=== PATIENT | male | born 1985 | race Caucasian/White ===

== ENCOUNTER 2019-07-02 20:58 | Emergency (ER) | payer OTHER, SELFPAY ==
--- NOTE | ~2019-07-02 | CT_ITS ---
EXAMINATION: CTA chest PE protocol DATE: 07/02/2019 23:14 CDT INDICATION: Cough and chest tightness TECHNIQUE: Computed tomographic angiography (CTA) of the chest was performed with 100 mL Omnipaque-35 0 intravenous contrast. The dose-length product was 961.16 mGy-cm. Maximum intensity projection 3D-re constructions of the aorta and other arteries were constructed by the technologist on a separate work station. Automated exposure control and iterative reconstruction technique were employed. COMPARISON: Chest x-ray dated 07/02/2019 FINDINGS: The study is technically limited for evaluation of peripheral pulmonary embolism due to lucy ing of contrast bolus. No central pulmonary embolism is identified. There is soft tissue in the anter ior mediastinum, likely residual thymic tissue. There is mediastinal lymphadenopathy. Right hilar lym ph node measures 1.4 cm. No significant pleural or pericardial effusion. Heart size is normal. Visual ized aspects of the upper abdomen are unremarkable. There are cholecystectomy clips. There are patchy reticulonodular densities with areas of tree-in-bud configuration primarily affectin g the right upper lobe. There is a 9 mm left upper lobe nodule with suggestion of internal macroscopi c fat, most likely benign hamartoma. IMPRESSION: 1. Patchy right upper lobe reticulonodular densities, most likely infectious. 2: Probable benign 9 mm left upper lobe nodule. Follow-up CT in 6 months recommended. 3: No central pulmonary embolism. Technically limited for evaluation of peripheral pulmonary embolism . 4: Right hilar lymphadenopathy, likely reactive. Reviewed, dictated and finalized at location A. IMPRESSION: 1. Patchy right upper lobe reticulonodular densities, most likely infectious. 2: Probable benign 9 mm left upper lobe nodule. Follow-up CT in 6 months recomm ended. 3: No central pulmonary embolism. Technically limited for evaluation of periphe ral pulmonary embolism. 4: Right hilar lymphadenopathy, likely reactive.
--- NOTE | ~2019-07-02 | XR_ITS ---
XR chest 2V 07/02/2019 21:29 Indication: Cough and shortness of breath. Fever. Procedure: 2 view chest Comparison: 07/03/2018 Findings: There is right basilar airspace disease. Shallow inspiration with crowding of the pulmonary vasculature. There is a nodular density left mid chest. Recommend correlation with CT on a nonemerge nt basis. No pleural effusion or pneumothorax. Heart size normal. Impression: 1: Right basilar infiltrate may represent atelectasis or developing pneumonia. 2: Nodular density left mid chest. Follow-up CT evaluation recommended on nonemergent basis. Reviewed, dictated and finalized at location A. Impression: 1: Right basilar infiltrate may represent atelectasis or developing pneumonia. 2: Nodular density left mid chest. Follow-up CT evaluation recommended on none mergent basis.
[2019-07-02 21:00] VITALS: BP 150/74; PULSE 78; RESP 17; TEMP 36.3; O2SAT 97
[2019-07-02 21:06] VITALS: BP 176/91; PULSE 83; RESP 16; TEMP 36.1; O2SAT 99
--- NOTE | 2019-07-02 21:06 | ED.SOB ---
HPI - SOB/Dyspnea General Chief Complaint: Shortness of Breath/Dyspnea Stated Complaint: sob Time Seen by Provider: 07/02/19 21:00 Source: patient Mode of arrival: ambulatory Limitations: no limitations History of Present Illness HPI Narrative: Patient is a 33 year old male who presents to the emergency department with complaints of shortness of breath that started a week ago. Patient called his primary care physician and he was diagnosed with bronchitis and prescribes an inhaler and an antibiotic maybe cipro. He reports a fever of 99F and a dry cough that is occasionally productive with thick phlegm. He also notes a poor appetite. Patient notes that he had his gallbladder removed so when he eats fatty foods he gets diarrhea. Patient also notes a 7/10 headache that started a few hours ago. He notes that he only had clear/yellow nasal drainage when it was raining due to his allergies. He denies having any urinary problems. He denies any ankle swelling. Patient denies a history of asthma, COPD, or CHF. He has a history of a cholecystectomy, appendectomy, kidney stones, and x2 spinal taps. Patient works at a [employer] in [employer] but he has not been to work in the last week. He is recently . MD elicited complaint: shortness of breath Onset (ago): week(s) (1) Timing: progressively worsening Relieving factors: nothing Associated symptoms: fever (99F) and cough Related Data Home Medications Medication Instructions Recorded Confirmed hydrocodone-acetaminophen 1 tablet PO Q4-5H PRN 04/23/19 04/23/19 sulfamethoxazole-trimethoprim 1 tablet PO BID 04/23/19 04/23/19 Allergies Allergy/AdvReac Type Severity Reaction Status Date / Time Boyd And Derivatives Allergy Severe ORAL Verified 07/02/19 21:17 BLISTERS onion Allergy Mild Diarrhea Verified 07/02/19 21:17 diphenhydramine AdvReac Intermediate AGGRESSION Verified 07/02/19 21:17 Review of Systems Review of Systems: All systems reviewed & are unremarkable except as noted in HPI and below Constitutional: Constitutional: Reports no additional constitutional complaints, Reports fever(s) (99F) and Reports poor appetite Cardiovascular: Cardiovascular: Denies chest pain, Denies radiating jaw, neck or arm pain and Denies slow heart rate Respiratory: Respiratory: Reports chest congestion, Reports cough, Reports dyspnea and Denies wheezing Gastrointestinal: Gastrointestinal: Reports diarrhea Genitourinary: Genitourinary: Denies other (urinary problems) Neurologic: Reports headache(s) PMFSH Past Medical History Medical History Back injury Chronic neck pain Chronic pain of left lower extremity GERD (gastroesophageal reflux disease) Heat stroke Inguinal hernia Bilateral Kidney stone Migraines Sleep apnea with use of continuous positive airway pressure (CPAP) Surgical History Surgical History H/O inguinal hernia repair Bilateral History of appendectomy History of cystoscopy History of extraction of renal calculus S/P ureteral stent placement Social History Social History Smoking status: Former smoker Alcohol intake: current Gender identity (if verbalized by the patient): Male Exam Const: General: cooperative Nutritional Appearance: obese HENMT: Head: normal to inspection Resp: Effort & Inspection: normal respiratory effort Auscultation: clear to auscultation bilaterally and no wheezes Cardio: Rate: regular rate Rhythm: regular rhythm Heart sounds: no murmurs GI: Inspection: normal to inspection GI Palp: No abdominal tenderness Skin: General skin exam: normal color Neuro: General: patient oriented x3 (alert) Extrem: General: full ROM and no edema Psych: Mental Status: mental status grossly normal Course Consultations Consultation #1: Discussed case with patients primary care phys
--- NOTE | 2019-07-02 21:12 | ECG_ITS ---
Measurements Intervals [place] Rate: 76 P: 39 W[place]: 141 QRS: 42 QRSD: 78 T: 36 QT: 367 QTc: 413 Interpretive Statements SINUS RHYTHM BASELINE ARTIFACT- II, III, V6 NORMAL ECG Electronically Signed On 07-03-2019 6:57:22 CDT by Eric Barbosa D.O.
[2019-07-02 21:14] VITALS: PULSE 79; O2SAT 99
[2019-07-02] MEDS: ACETAMINOPHEN 500 MG TABLET 1000 MG PO (21:33)
[2019-07-02 21:39] LABS: Basophils Percent Auto 0.3 % (0.2-1.2); Eosinophils Absolute Auto 0.3 K/mm3 (0-0.3); Eosinophils Percent Auto 4.1 % (0-4.4); Hemoglobin 12.9 g/dL (14.0-18.0); Immature Granulocyte Absolute 0.05 K/mm3 (0.00-0.031); Immature Granulocyte Percent A 0.6 % (0-0.5); Lymphocytes Absolute Auto 1.75 K/mm3 (0.9-3.2); Lymphocytes Percent Auto 22.6 % (18.3-44.2); Mean Corpuscular HGB Conc 33.9 g/dl (32-36); Mean Corpuscular Hemoglobin 27.3 pg (26-34); Mean Corpuscular Volume 80.5 fl (80-100); Mean Platelet Volume 11.9 fl (7.4-10.4); Monocytes Absolute Auto 0.7 K/mm3 (0.1-0.6); Neutrophils Absolute Auto 4.9 K/mm3 (1.3-6.7); Neutrophils Percent Auto 63.4 % (45.5-73.1); Platelet Count Result 185 k/mm3 (150-375); Red Blood Count 4.72 M/mm3 (4.6-6.20); Red Cell Distribution Width 13.2 % (11.5-14.5); White Blood Count 7.7 K/mm3 (4.5-10.0)
[2019-07-02 21:57] LABS: Alanine Aminotransferase 26 U/L (4-50); Albumin Level 3.6 g/dL (3.5-5.1); Alkaline Phosphatase 66 U/L (38-126); Aspartate Amino Transferase 31 U/L (17-59); Bilirubin,Total 0.7 mg/dL (0.2-1.3); Blood Urea Nitrogen 13 mg/dL (9-20); Calcium 8.2 mg/dL (8.4-10.2); Carbon Dioxide 26 mmol/L (22-30); Chloride 107 mmol/L (98-107); Estimated CRCL calculation 164 ml/min; Estimated Glomerular Filt Rate > 60; Glucose 101 mg/dL (75-110); Potassium 3.9 mmol/L (3.4-5.0); Sodium 139 mmol/L (137-145)
[2019-07-02 22:06] LABS: NT Pro B Type Natriuretic Pept 487 PG/ML (5-100)
[2019-07-02 22:08] LABS: Troponin I < 0.012 ng/mL (0.000-0.034)
[2019-07-02] MEDS: CALCIUM GLUCONATE 1,000 MG/10 ML VIAL 1000 MG IV PUSH (22:20)
[2019-07-02 22:21] VITALS: BP 164/95; PULSE 79; RESP 22; O2SAT 100
[2019-07-02] MEDS: FUROSEMIDE INJ 40 MG/4 ML VIAL IV PUSH (22:21)
[2019-07-02 23:21] VITALS: BP 169/103; PULSE 89; RESP 18; O2SAT 99
[2019-07-02 23:47] VITALS: BP 165/84; PULSE 75; RESP 18; TEMP 36.9; O2SAT 97
== END 2019-07-02 23:50 | disposition home or self-care (01) ==
PROVIDERS: Emergency Provider Emergency Medicine; PCP Physician Assistant
DX: I50.9 Heart failure, unspecified (principal); J18.9 Pneumonia, unspecified organism; R03.0 Elevated blood-pressure reading, without diagnosis of hypertension; E83.51 Hypocalcemia; K21.9 Gastro-esophageal reflux disease without esophagitis; G47.30 Sleep apnea, unspecified; Z87.442 Personal history of urinary calculi; Z87.891 Personal history of nicotine dependence
CPT/HCPCS: 36415; 71046; 71275; 80053; 83880; 84484; 85025; 93005; 96374; 96375; 99284; A9270; J0610; J1940; Q9967

== ENCOUNTER 2019-10-05 13:57 | Emergency (ER) | payer OTHER, SELFPAY ==
--- NOTE | ~2019-10-05 | CT_ITS ---
EXAMINATION: CT abdomen pelvis w con DATE: 10/05/2019 15:42 INDICATION: Right upper quadrant abdominal pain. Nausea. Diarrhea. TECHNIQUE: Computed tomography (CT) of the chest was performed with 100 cc Omnipaque 350 intravenous contrast. The dose-length product was 1746.03 mGy-cm. Automated exposure control and iterative recons truction technique were employed. COMPARISON: CT dated 04/12/2019 FINDINGS: Lung bases unremarkable. No significant pleural or pericardial effusion. Heart size normal. No significant vascular abnormality. There are surgical changes of appendectomy. Status post cholecystectomy. The liver, spleen, pancreas, adrenal glands and kidneys are unremarkable . No free air or free fluid. There is a healed left 11th rib fracture posteriorly. No acute osseous a bnormality. Nonobstructive bowel gas pattern. No hydronephrosis. IMPRESSION: 1. No acute abdominal abnormality. No findings to account for patient's symptoms. Reviewed, dictated and finalized at location A. IMPRESSION: 1. No acute abdominal abnormality. No findings to account for patient's symptom s.
[2019-10-05 14:14] VITALS: BP 153/94; PULSE 80; RESP 18; TEMP 37.1; O2SAT 99
[2019-10-05] MEDS: MORPHINE SULFATE 4 MG/ML INJ IV PUSH (14:33)
[2019-10-05] MEDS: ONDANSETRON INJ 4 MG/2 ML VIAL IV PUSH (14:34)
--- NOTE | 2019-10-05 14:37 | PC.NURSE ---
Pt states he is unable to give urine sample at this time. I informed pt that if not able to get urine we will have to straight cath
[2019-10-05 14:40] LABS: Basophils Percent Auto 0.3 % (0.2-1.2); Eosinophils Absolute Auto 0.2 K/mm3 (0-0.3); Eosinophils Percent Auto 2.5 % (0-4.4); Hematocrit 45.1 % (42.0-52.0); Hemoglobin 15.8 g/dL (14.0-18.0); Immature Granulocyte Absolute 0.04 K/mm3 (0.00-0.031); Immature Granulocyte Percent A 0.4 % (0-0.5); Lymphocytes Absolute Auto 1.75 K/mm3 (0.9-3.2); Lymphocytes Percent Auto 18.8 % (18.3-44.2); Mean Corpuscular Hemoglobin 27.2 pg (26-34); Mean Corpuscular Volume 77.6 fl (80-100); Mean Platelet Volume 11.6 fl (7.4-10.4); Monocytes Absolute Auto 0.9 K/mm3 (0.1-0.6); Monocytes Percent Auto 9.2 % (2.6-8.5); Neutrophils Absolute Auto 6.4 K/mm3 (1.3-6.7); Neutrophils Percent Auto 68.8 % (45.5-73.1); Platelet Count Result 218 k/mm3 (150-375); Red Blood Count 5.81 M/mm3 (4.6-6.20); Red Cell Distribution Width 13.5 % (11.5-14.5); White Blood Count 9.3 K/mm3 (4.5-10.0)
--- NOTE | 2019-10-05 14:50 | ED.ABDPAIN ---
HPI - Abdominal Pain General Chief Complaint: Abdominal Pain Stated Complaint: RUQ ABD PAIN Time Seen by Provider: 10/05/19 14:01 History of Present Illness HPI narrative: Patient is a 33-year-old male who presents the ER with abdominal pain. Ongoing over the last week associated with diarrhea anytime he eats. Pain is in the right upper quadrant as well as the left upper quadrant. No blood in his stool. No alleviating factors. Has had persistent nausea since he has had his gallbladder out. Referred here by PCP for persistent discomfort. Related Data Home Medications Medication Instructions Recorded Confirmed hydrocodone-acetaminophen 1 tablet PO Q4-5H PRN 04/23/19 04/23/19 sulfamethoxazole-trimethoprim 1 tablet PO BID 04/23/19 04/23/19 Allergies Allergy/AdvReac Type Severity Reaction Status Date / Time Calvert And Derivatives Allergy Severe ORAL Verified 07/02/19 21:17 BLISTERS onion Allergy Mild Diarrhea Verified 07/02/19 21:17 diphenhydramine AdvReac Intermediate AGGRESSION Verified 07/02/19 21:17 Review of Systems Review of Systems: All systems reviewed & are unremarkable except as noted in HPI and below Constitutional: Constitutional: Denies chills and Denies fever(s) Comments: Sweats ENT: Denies nasal congestion and Denies sore throat Cardiovascular: Cardiovascular: Denies chest pain, Denies rapid heart rate and Denies radiating jaw, neck or arm pain Gastrointestinal: Gastrointestinal: Reports abdominal pain, Denies heartburn, Reports diarrhea, Reports nausea and Denies vomiting Genitourinary: Genitourinary: Denies dysuria and Denies urinary frequency PMF Social History Social History Smoking status: Former smoker Alcohol intake: current Gender identity (if verbalized by the patient): Male Exam Narrative: Exam Narrative: GENERAL: Well-appearing, morbidly obese, and in no acute distress. HEAD: Normocephalic, atraumatic. CHEST: Clear to auscultation. No respiratory distress. HEART: Regular rate and rhythm. Normal peripheral pulses. ABDOMEN: Soft, tender palpation bilateral upper quadrants right greater than left with guarding, nondistended. EXTREMITIES: Normal range of motion. No edema. SKIN: Warm, dry, no rash. NEURO: Alert and oriented x3. PSYCH: Normal mood and affect. Course Course Emergency Course: Normal work-up. Discharge home. Vital Signs Vital signs: Vital Signs Temperature 98.8 F 10/05/19 14:14 Pulse Rate 80 10/05/19 14:14 Respiratory Rate 18 10/05/19 14:14 Blood Pressure 153/94 H 10/05/19 14:14 Pulse Oximetry 99 10/05/19 14:14 Temperature 98.8 F 10/05/19 14:14 Pulse Rate 74 10/05/19 17:13 Respiratory Rate 15 10/05/19 17:13 Blood Pressure 174/65 H 10/05/19 17:13 Pulse Oximetry 98 10/05/19 17:13 MDM - Abdominal Pain Lab Data Result diagrams: 10/05/19 14:35 10/05/19 14:35 Labs: Lab Results 10/05/19 10/05/19 Range/Units 14:35 14:35 WBC 9.3 (4.5-10.0) K/mm3 RBC 5.81 (4.6-6.20) M/mm3 Hgb 15.8 (14.0-18.0) g/dL Hct 45.1 (42.0-52.0) % MCV 77.6 L (80-100) fl MCH 27.2 (26-34) pg MCHC 35.0 (32-36) g/dl RDW 13.5 (11.5-14.5) % Plt Count 218 (150-375) k/mm3 MPV 11.6 H (7.4-10.4) fl Immature Gran % (Auto) 0.4 (0-0.5) % Neut % (Auto) 68.8 (45.5-73.1) % Lymph % (Auto) 18.8 (18.3-44.2) % Benton % (Auto) 9.2 H (2.6-8.5) % Eos % (Auto) 2.5 (0-4.4) % Baso % (Auto) 0.3 (0.2-1.2) % Lymph # (Auto) 1.75 (0.9-3.2) K/mm3 Benton # (Auto) 0.9 H (0.1-0.6) K/mm3 Eos # (Auto) 0.2 (0-0.3) K/mm3 Baso # (Auto) 0.0 (0.0-0.1) K/mm3 Abs Immat Gran (auto) 0.04 H (0.00-0.031) K/mm3 Absolute Neuts (auto) 6.4 (1.3-6.7) K/mm3 Absolute Nucleated RBC 0.0 (0.0-0.012) K/mm3 Nucleated RBC % 0.0 (0.0-0.2) % Sodium 139 (137-145) mmol/L Potassium 4.0 (3.4-5.0) mmol/L Chloride 106 (98-
[2019-10-05 14:52] LABS: Alanine Aminotransferase 36 U/L (4-50); Albumin Level 3.9 g/dL (3.5-5.1); Alkaline Phosphatase 90 U/L (38-126); Aspartate Amino Transferase 28 U/L (17-59); Bilirubin,Total 0.6 mg/dL (0.2-1.3); Blood Urea Nitrogen 8 mg/dL (9-20); Calcium 8.5 mg/dL (8.4-10.2); Carbon Dioxide 25 mmol/L (22-30); Chloride 106 mmol/L (98-107); Estimated CRCL calculation 195 ml/min; Estimated Glomerular Filt Rate > 60; Glucose 101 mg/dL (75-110); Lipase 51 U/L (23-300); Sodium 139 mmol/L (137-145)
[2019-10-05 17:13] VITALS: BP 174/65; PULSE 74; RESP 15; O2SAT 98
== END 2019-10-05 17:30 | disposition home or self-care (01) ==
PROVIDERS: Emergency Provider Emergency Medicine; PCP Physician Assistant
DX: R14.0 Abdominal distension (gaseous) (principal); R10.11 Right upper quadrant pain; R10.12 Left upper quadrant pain
CPT/HCPCS: 36415; 74177; 80053; 83690; 85025; 96374; 96375; 99284; J2270; J2405; Q9967

== ENCOUNTER 2019-12-07 15:57 | Emergency (ER) | payer OTHER, SELFPAY ==
--- NOTE | ~2019-12-07 | CT_ITS ---
EXAMINATION: CT abdomen pelvis wo con DATE: 12/07/2019 17:35 INDICATION: Flank pain. Urinary tract infection. History of stone. TECHNIQUE: Computed tomography (CT) of the abdomen and pelvis was performed without intravenous contr ast. Automated exposure control and iterative reconstruction technique were employed. Exam dose: 157 4.68 mGy-cm total exam DLP. COMPARISON: 10/05/[address] abdomen pelvis FINDINGS: The lung bases are clear of infiltrate or consolidation. Normal heart size. No pericardial or pleural effusion. Status post cholecystectomy. The liver, spleen, pancreas, and adrenal glands and kidneys appear unrem arkable on this limited noncontrast examination. No bile duct or pancreatic duct dilatation. No urinary tract calculus or hydroureteronephrosis. Normal caliber of the abdominal aorta. No intraperitoneal or retroperitoneal or pelvic mass lesion or adenopathy or ascites. Probable appendectomy. No bowel obstruction, bowel wall thickening, pneumatosis or intraperitoneal free air is detected. Pro bable appendectomy. Old posterior left 11th rib fracture deformity. IMPRESSION: Status post cholecystectomy. Probable appendectomy. No urinary tract calculus or hydroureteronephrosis Reviewed, dictated and finalized at [facility]. Reviewed, dictated and finalized at location A.
--- NOTE | ~2019-12-07 | XR_ITS ---
EXAMINATION: XR abdomen/kub 1V EXAM DATE: 12/07/2019 17:43 INDICATION: History of kidney stones, left-sided pain. TECHNIQUE: Frontal projection of the upper abdomen, frontal projection lower abdomen/pelvis for inter pretation. There is no prior study for comparison. FINDINGS: There is expected amount of colonic stool and gas. No small bowel dilation, nonobstructiv e bowel gas pattern. Some stool and bowel gas overlying the renal contours. There are no suspicious c alcifications identified. There is no organomegaly suspected. The bones are unremarkable. There are cholecystectomy clips. Previously seen right-sided ureteral stent has been removed. IMPRESSION: Unremarkable abdomen x-ray exam. Reviewed, dictated and finalized at location A.
[2019-12-07 16:03] VITALS: BP 156/106; PULSE 57; RESP 16; TEMP 35.7; O2SAT 96
[2019-12-07 16:16] LABS: Basophils Percent Auto 0.2 % (0.2-1.2); Eosinophils Absolute Auto 0.2 K/mm3 (0-0.3); Eosinophils Percent Auto 1.9 % (0-4.4); Hematocrit 45.8 % (42.0-52.0); Hemoglobin 15.9 g/dL (14.0-18.0); Immature Granulocyte Absolute 0.04 K/mm3 (0.00-0.031); Immature Granulocyte Percent A 0.4 % (0-0.5); Lymphocytes Absolute Auto 2.07 K/mm3 (0.9-3.2); Lymphocytes Percent Auto 19.2 % (18.3-44.2); Mean Corpuscular HGB Conc 34.7 g/dl (32-36); Mean Corpuscular Hemoglobin 27.6 pg (26-34); Mean Corpuscular Volume 79.4 fl (80-100); Mean Platelet Volume 12.4 fl (7.4-10.4); Monocytes Percent Auto 9.6 % (2.6-8.5); Neutrophils Absolute Auto 7.4 K/mm3 (1.3-6.7); Neutrophils Percent Auto 68.7 % (45.5-73.1); Platelet Count Result 175 k/mm3 (150-375); Red Blood Count 5.77 M/mm3 (4.6-6.20); Red Cell Distribution Width 13.5 % (11.5-14.5); White Blood Count 10.8 K/mm3 (4.5-10.0)
[2019-12-07 16:26] LABS: Anion Gap 7 mmol/L (8-16); Blood Urea Nitrogen 11 mg/dL (9-20); Calcium 8.4 mg/dL (8.4-10.2); Carbon Dioxide 24 mmol/L (22-30); Chloride 107 mmol/L (98-107); Estimated CRCL calculation 155 ml/min; Estimated Glomerular Filt Rate > 60; Glucose 116 mg/dL (75-110); Potassium 4.1 mmol/L (3.4-5.0); Sodium 138 mmol/L (137-145)
[2019-12-07 16:26] LABS: Add Urine Microscopic? YES; Appearance Urine Clear (Clear); Bacteria Urine Trace /hpf; Bilirubin Urine Negative (Negative); Blood Urine Negative (Negative); Color Urine Amber (Yellow); Glucose Urine UA Negative (Negative); Ketones Urine Negative (Negative); Leukocyte Esterase Ur Negative LEU/UL (Negative); Mucus Urine Moderate /lpf; Nitrate Urine Positive (Negative); Protein Urine 1+ mg/dL (Negative); RBC Urine 0-2 /hpf (0-2); Specific Grav Ur 1.029 (1.001-1.035); Squamous Epithelial Cell Urine Many /hpf (Few); WBC Urine 0-3 /hpf
--- NOTE | 2019-12-07 16:43 | ED.BACK ---
HPI - Back Pain/Injury General Chief Complaint: Back Pain/Injury Stated Complaint: Another kidney stone Time Seen by Provider: 12/07/19 16:43 Source: patient Mode of arrival: ambulatory Limitations: no limitations History of Present Illness HPI Narrative: Patient is a 34-year-old male with history of nephrolithiasis who presents for evaluation of left flank pain. Patient states he awakened this morning with a dull, aching pain in his left upper back. States it felt similar to a pulled muscle but patient has also had kidney stones for like this in the past. Patient states throughout the course of the day the pain is worsened. He denies fever, chills or vomiting. He reports mild nausea. He denies dysuria or hematuria that he has noticed. Patient states that pain has become more severe, more consistent with pain consistent with kidney stone, thus patient presented for evaluation here. Related Data Home Medications Medication Instructions Recorded Confirmed hydrocodone-acetaminophen 1 tablet PO Q4-5H PRN 04/23/19 04/23/19 sulfamethoxazole-trimethoprim 1 tablet PO BID 04/23/19 04/23/19 meloxicam 12/07/19 Allergies Allergy/AdvReac Type Severity Reaction Status Date / Time Sargent And Derivatives Allergy Severe ORAL Verified 12/07/19 17:17 BLISTERS onion Allergy Mild Diarrhea Verified 12/07/19 17:17 diphenhydramine AdvReac Intermediate AGGRESSION Verified 12/07/19 17:17 Review of Systems Review of Systems: Narrative: CONSTITUTIONAL: Denies fever, chills, or sweats. ENT: Denies rhinorrhea, congestion, sore throat, or otalgia. CARDIOVASCULAR: Denies chest pain RESPIRATORY: Denies cough or dyspnea. GASTROINTESTINAL: Denies abdominal pain, reports left flank pain and nausea GENITOURINARY: Denies dysuria or hematuria. SKIN: Denies rash or itching. MUSCULOSKELETAL: Denies joint pain, or myalgia. NEUROLOGIC: Denies headache, numbness, or weakness. [facility] Past Medical History Medical History Back injury Chronic neck pain Chronic pain of left lower extremity GERD (gastroesophageal reflux disease) Heat stroke Inguinal hernia Bilateral Kidney stone Migraines Sleep apnea with use of continuous positive airway pressure (CPAP) Surgical History Surgical History H/O inguinal hernia repair Bilateral History of appendectomy History of cystoscopy History of extraction of renal calculus S/P ureteral stent placement Social History Social History Smoking status: Former smoker Alcohol intake: current Gender identity (if verbalized by the patient): Male Exam Narrative: Exam Narrative: GENERAL: Awake, alert, conversant HEAD: Normocephalic, atraumatic. EYES: PERRLA and EOMI. ENT: Nares clear, no rhinorrhea or epistaxis. Mucous membranes moist. NECK: Supple. CHEST: No respiratory distress, breathing even and non labored HEART: Regular rate, sinus rhythm ABDOMEN: Obese, non distended, non tender, mild left flank tenderness EXTREMITIES: Normal range of motion. No edema. SKIN: Warm, dry, no rash. No vesicles, no ecchymoses. NEURO:No focal deficits. Alert and oriented x3 Course Vital Signs Vital signs: Vital Signs Temperature 35.7 C L 12/07/19 16:03 Pulse Rate 57 L 12/07/19 16:03 Respiratory Rate 16 12/07/19 16:03 Blood Pressure 156/106 H 12/07/19 16:03 Pulse Oximetry 96 12/07/19 16:03 Temperature 35.7 C L 12/07/19 16:03 Pulse Rate 57 L 12/07/19 16:03 Respiratory Rate 16 12/07/19 16:03 Blood Pressure 156/106 H 12/07/19 16:03 Pulse Oximetry 96 12/07/19 16:03 MDM - Back Pain/Injury MDM Narrative Medical decision making narrative: Patient presented for evaluation of left flank pain. The time of initial assessment, ABCs are intact and vital signs are stable. Pain is mildly reproducible along the left flank which is so
[2019-12-07] MEDS: SODIUM CHLORIDE 0.9% IV 1,000 ML 999 ML IV CONT (17:19)
[2019-12-07] MEDS: ONDANSETRON INJ 4 MG/2 ML VIAL IV PUSH (17:19)
[2019-12-07] MEDS: MORPHINE SULFATE 4 MG/ML INJ IV PUSH (17:19)
--- NOTE | 2019-12-07 17:25 | PC.NURSE ---
Pt to CT scan via stretcher w/ fluids infusing.
[2019-12-07 17:38] LABS: Lactic Acid Reflex 0.9 mmol/L (0.7-2.1)
[2019-12-07 18:35] VITALS: BP 144/92; PULSE 63; RESP 17; O2SAT 98
== END 2019-12-07 18:39 | disposition home or self-care (01) ==
PROVIDERS: Emergency Provider Emergency Medicine; PCP Physician Assistant
DX: N39.0 Urinary tract infection, site not specified (principal); K21.9 Gastro-esophageal reflux disease without esophagitis; G47.30 Sleep apnea, unspecified
CPT/HCPCS: 36415; 74018; 74176; 80048; 81001; 83605; 85025; 87040; 96365; 96375; 99284; J0696; J2270; J2405; J7030

== ENCOUNTER 2019-12-10 12:49 | Emergency (ER) | payer OTHER, SELFPAY ==
[2019-12-10 12:50] VITALS: BP 134/81; PULSE 65; RESP 20; TEMP 36.8; O2SAT 99
[2019-12-10 15:40] VITALS: BP 132/74; PULSE 70; RESP 15; O2SAT 100
--- NOTE | 2019-12-10 16:16 | ED.BACK ---
HPI - Back Pain/Injury General Chief Complaint: Back Pain/Injury Stated Complaint: lower back pain Time Seen by Provider: 12/10/19 15:23 Source: patient Mode of arrival: ambulatory Limitations: no limitations History of Present Illness HPI Narrative: This patient is a 34 year old male who presents for evaluation of left back pain. He states his pain started on Tuesday while he was at work. He reports his had back pain similar to his previous episode of kidney stones. He also reported having hematuria at that time so he came to the ER. He reports he had CT scan performed which was negative for kidney stones but he was diagnosed with a kidney infection. He was discharged on keflex, ibuprofen, tylenol and a lidocaine patch. He has not taken anything for pain but he states his pain has worsened. He denies nausea, vomiting, abdominal pain or fever today. He denies sob. His pain is worse with movement. Related Data Home Medications Medication Instructions Recorded Confirmed hydrocodone-acetaminophen 1 tablet PO Q4-5H PRN 04/23/19 04/23/19 sulfamethoxazole-trimethoprim 1 tablet PO BID 04/23/19 04/23/19 meloxicam 12/07/19 Allergies Allergy/AdvReac Type Severity Reaction Status Date / Time Coles And Derivatives Allergy Severe ORAL Verified 12/07/19 17:17 BLISTERS onion Allergy Mild Diarrhea Verified 12/07/19 17:17 diphenhydramine AdvReac Intermediate AGGRESSION Verified 12/07/19 17:17 Review of Systems Review of Systems: All systems reviewed & are unremarkable except as noted in HPI and below Constitutional: Constitutional: Denies chills and Denies fever(s) Cardiovascular: Cardiovascular: Denies chest pain and Denies slow heart rate Respiratory: Respiratory: Denies cough and Denies dyspnea Gastrointestinal: Gastrointestinal: Denies abdominal pain, Denies diarrhea, Reports nausea and Denies vomiting Genitourinary: Genitourinary: Reports hematuria Musculoskeletal: Musculoskeletal: Reports back pain PMFSH Past Medical History Medical History Back injury Chronic neck pain Chronic pain of left lower extremity GERD (gastroesophageal reflux disease) Heat stroke Inguinal hernia Bilateral Kidney stone Migraines Sleep apnea with use of continuous positive airway pressure (CPAP) Social History Social History Smoking status: Former smoker Alcohol intake: current Gender identity (if verbalized by the patient): Male Exam Const: General: no acute distress and alert Nutritional Appearance: obese Orientation/consciousness: patient oriented x3 HENMT: Head: normocephalic and atraumatic General nose exam: Normal external nose present, Normal nares present, No nasal polyps present and Normal nasal mucous membranes and turbinates present Face and sinus: face symmetric Teeth and gingiva: dentition normal Throat: posterior oropharynx normal, tonsils normal and uvula midline Eyes: EOM: EOMs intact bilaterally Resp: Effort & Inspection: normal respiratory effort and no retractions Auscultation: clear to auscultation bilaterally Cardio: Rate: regular rate Rhythm: regular rhythm Heart sounds: no murmurs GI: GI Palp: Yes Soft to palpation, No Firmness to palpation present (GI), No Tenderness to palpation present (GI) and No Guarding due to palpation present (GI) Auscultation: normal bowel sounds Back/Spine/Pelvis: Back: no CVA tenderness Skin: General skin exam: normal color Rashes: no rashes Neuro: General: patient oriented x3, moves all extremities and CN's II-XI intact bilaterally Extrem: General: normal to inspection Course Reevaluation(s) Reevaluation #1: I reviewed patient's labs and CT from his last visit. No acute findings on CT and no stone. On repeat labs no acute abnormalities. No UTI. He has an appointment with PCP in 2 days. Date: 12/10/19 Time: 18:44 Vital Signs Vit
[2019-12-10 16:52] LABS: Add Urine Microscopic? YES; Appearance Urine Clear (Clear); Bacteria Urine Trace /hpf; Bilirubin Urine Negative (Negative); Blood Urine Negative (Negative); Color Urine Yellow (Yellow); Glucose Urine UA Negative (Negative); Ketones Urine Negative (Negative); Leukocyte Esterase Ur Negative LEU/UL (Negative); Mucus Urine Few /lpf; Nitrate Urine Negative (Negative); Protein Urine 1+ mg/dL (Negative); RBC Urine 0-2 /hpf (0-2); Squamous Epithelial Cell Urine Occasional /hpf (Few); WBC Urine 0-3 /hpf
[2019-12-10 16:56] LABS: Specific Grav Ur 1.031 (1.001-1.035)
[2019-12-10] MEDS: KETOROLAC 30 MG/ML VIAL (*BKC) IV PUSH (17:04)
--- NOTE | 2019-12-10 17:14 | PC.NURSE ---
labs were unable to be drawn. Lab called to come and draw
[2019-12-10 17:48] LABS: Basophils Percent Auto 0.3 % (0.2-1.2); Eosinophils Absolute Auto 0.3 K/mm3 (0-0.3); Eosinophils Percent Auto 2.7 % (0-4.4); Hematocrit 46.4 % (42.0-52.0); Hemoglobin 15.8 g/dL (14.0-18.0); Immature Granulocyte Absolute 0.04 K/mm3 (0.00-0.031); Immature Granulocyte Percent A 0.4 % (0-0.5); Lymphocytes Absolute Auto 1.93 K/mm3 (0.9-3.2); Lymphocytes Percent Auto 20.8 % (18.3-44.2); Mean Corpuscular HGB Conc 34.1 g/dl (32-36); Mean Corpuscular Hemoglobin 27.1 pg (26-34); Mean Corpuscular Volume 79.6 fl (80-100); Mean Platelet Volume 12.7 fl (7.4-10.4); Monocytes Absolute Auto 0.9 K/mm3 (0.1-0.6); Monocytes Percent Auto 9.2 % (2.6-8.5); Neutrophils Absolute Auto 6.2 K/mm3 (1.3-6.7); Neutrophils Percent Auto 66.6 % (45.5-73.1); Platelet Count Result 161 k/mm3 (150-375); Red Blood Count 5.83 M/mm3 (4.6-6.20); Red Cell Distribution Width 13.6 % (11.5-14.5); White Blood Count 9.3 K/mm3 (4.5-10.0)
[2019-12-10 18:00] LABS: INR 1.1; Partial Thromboplastin Time 23.5 SECONDS (22.3-36.8); Prothrombin Time 13.7 Seconds (11.1-14.7)
[2019-12-10 18:03] LABS: D Dimer 0.29 ug/mL (<0.48)
[2019-12-10 18:19] LABS: Alanine Aminotransferase 31 U/L (4-50); Alkaline Phosphatase 64 U/L (38-126); Anion Gap 6 mmol/L (8-16); Aspartate Amino Transferase 35 U/L (17-59); Blood Urea Nitrogen 13 mg/dL (9-20); Calcium 8.4 mg/dL (8.4-10.2); Carbon Dioxide 26 mmol/L (22-30); Chloride 105 mmol/L (98-107); Estimated CRCL calculation 179 ml/min; Estimated Glomerular Filt Rate > 60; Glucose 88 mg/dL (75-110); Potassium 3.8 mmol/L (3.4-5.0); Sodium 137 mmol/L (137-145)
--- NOTE | 2019-12-10 18:40 | PC.NURSE ---
assumed care of pt, pt is alert and upright on stretcher, vss, discussed POC
[2019-12-10 18:41] VITALS: BP 174/85; PULSE 77; RESP 16; O2SAT 95
[2019-12-10 19:38] VITALS: BP 148/86; PULSE 85; RESP 18; TEMP 36.8; O2SAT 98
== END 2019-12-10 19:39 | disposition home or self-care (01) ==
PROVIDERS: Emergency Provider General Practice; PCP Physician Assistant
DX: R10.9 Unspecified abdominal pain (principal); Z87.891 Personal history of nicotine dependence; K21.9 Gastro-esophageal reflux disease without esophagitis; G47.30 Sleep apnea, unspecified
CPT/HCPCS: 36415; 80053; 81001; 85025; 85380; 85610; 85730; 96374; 99284; J1885

== ENCOUNTER → 2020-01-11 16:49 | Outpatient (CLI) | payer OTHER, SELFPAY ==
--- NOTE | ~2020-01-11 | MR_ITS ---
EXAMINATION: MR knee RT wo con DATE: 01/11/2020 18:28 INDICATION: Right knee pain. Right knee injury. TECHNIQUE: Magnetic resonance imaging (MRI) of the right knee was performed without intravenous contr ast. Sequences included axial PD-weighted FS FSE, coronal PD-weighted FSE and PD-weighted FS FSE, sag ittal PD-weighted FSE, and sagittal T2-weighted FS FSE. COMPARISON: Right knee radiographs 02/24/2019 FINDINGS: Medial compartment: Medial meniscus is normal. There is shallow partial-thickness cartilage loss of femoral condyle, wors t at the central articular surface. There is cartilage surface irregularity of tibial condyle. Lateral compartment: Lateral meniscus is normal. There is cartilage surface irregularity of tibial condyle. Femoral cartil age is normal. Patellofemoral compartment: There is deep cartilage fissuring of patellar lateral facet. There is shallow partial-thickness carti césar loss of patellar median ridge and medial facet. There is cartilage surface irregularity of troch melo. Ligaments and tendons: The anterior and posterior cruciate ligaments are normal. Medial collateral ligament and lateral kobe ateral ligament complex are normal. Fluid: There is a small knee joint effusion. There is mild prepatellar and superficial infrapatellar bursiti s. IMPRESSION: 1. Moderate chondrosis of patellofemoral compartment and mild chondrosis of medial and lateral compar tments. 2. Small knee joint effusion. Reviewed, dictated and finalized at location A. IMPRESSION: 1. Moderate chondrosis of patellofemoral compartment and mild chondrosis of med ial and lateral compartments. 2. Small knee joint effusion.
== END ==
PROVIDERS: PCP Physician Assistant; Visit Provider Physician Assistant
DX: S89.91XD Unspecified injury of right lower leg, subsequent encounter (principal); X58.XXXD Exposure to other specified factors, subsequent encounter; M25.461 Effusion, right knee
CPT/HCPCS: 73721

== ENCOUNTER 2020-11-08 11:10 | Emergency (ER) | payer OTHER, SELFPAY ==
[2020-11-08 11:37] VITALS: BP 152/94; PULSE 79; RESP 18; TEMP 36.5; O2SAT 99
--- NOTE | 2020-11-08 14:14 | ED.WOUNDLAC ---
HPI - Wound/Laceration General Chief Complaint: Wound/Laceration Stated Complaint: possible spider bite Time Seen by Provider: 11/08/20 13:42 History of Present Illness HPI narrative: Patient presents with concern for ingrown hair. Patient reports symptoms were present for the past couple days last night when he is taking shower he noted the wound popped and there is a malodorous material discharge. He was concerned so wanted to come in for evaluation today. Reports he has had abscesses before in the past and he feels this is similar to those prior episodes. Denies any fevers he denies any immune compromising conditions. He denies any nausea vomiting or diarrhea. He has pain around the wound site on the back of his neck is achy, cough, worse when he touches it. Related Data Home Medications Medication Instructions Recorded Confirmed hydrocodone-acetaminophen 1 tablet PO Q4-5H PRN 04/23/19 04/23/19 sulfamethoxazole-trimethoprim 1 tablet PO BID 04/23/19 04/23/19 meloxicam 12/07/19 Allergies Allergy/AdvReac Type Severity Reaction Status Date / Time [place] And Derivatives Allergy Severe ORAL Verified 11/08/20 11:57 BLISTERS onion Allergy Mild Diarrhea Verified 11/08/20 11:57 diphenhydramine AdvReac Intermediate AGGRESSION Verified 11/08/20 11:57 Review of Systems Review of Systems: CONSTITUTIONAL: Denies fever, chills, or sweats. EYES: Denies visual changes, redness, or discharge. ENT: Denies rhinorrhea, congestion, sore throat, or otalgia. CARDIOVASCULAR: Denies chest pain, palpitations, or edema. RESPIRATORY: Denies cough or dyspnea. GASTROINTESTINAL: Denies abdominal pain, nausea, vomiting, or diarrhea. GENITOURINARY: Denies dysuria or hematuria. SKIN: Denies rash or itching. MUSCULOSKELETAL: Denies back pain, joint pain, or myalgia. NEUROLOGIC: Denies numbness, dizziness, or weakness. PSYCHIATRIC: Denies anxiety or depression. All systems reviewed & are unremarkable except as noted in HPI and below PMFSH Past Medical History Medical History (Updated 11/08/20 @ 14:19 by Dano Orozco MD) Back injury Chronic neck pain Chronic pain of left lower extremity GERD (gastroesophageal reflux disease) Heat stroke Inguinal hernia Bilateral Kidney stone Migraines Sleep apnea with use of continuous positive airway pressure (CPAP) Surgical History Surgical History H/O inguinal hernia repair Bilateral History of appendectomy History of cystoscopy History of extraction of renal calculus S/P ureteral stent placement Family History Family History Father Hypertension Other Diabetes mellitus Social History Social History Smoking status: Former smoker Alcohol intake: current Gender identity (if verbalized by the patient): Male Exam Narrative: GENERAL: Well-appearing, well-nourished, and in no acute distress. HEAD: Normocephalic, atraumatic. EYES: PERRLA and EOMI. ENT: Nares clear, no rhinorrhea or epistaxis. Mucous membranes moist. NECK: Supple. No masses. No JVD, small 1 x 1 cm area of erythema with central edema EXTREMITIES: Normal range of motion. No edema. SKIN: Warm, dry, no rash. NEURO: No focal deficits. Alert and oriented x3. PSYCH: Normal mood and affect. Course Reevaluation(s) Reevaluation #1: Pain report feeling improved after needle drainage of abscess. Scant purulent material was expressed Date: 11/08/20 Time: 14:17 Vital Signs Vital signs: Vital Signs Temperature 36.5 C 11/08/20 11:37 Pulse Rate 79 11/08/20 11:37 Respiratory Rate 18 11/08/20 11:37 Blood Pressure 152/94 H 11/08/20 11:37 Pulse Oximetry 99 11/08/20 11:37 Temperature 36.5 C 11/08/20 11:37 Pulse Rate 79 11/08/20 11:37 Respiratory Rate 18 11/08/20 11:37 Blood Pressure 152/94 H 11/08/20 11:37 Pulse Oximetry
== END 2020-11-08 14:24 | disposition home or self-care (01) ==
PROVIDERS: Emergency Provider Emergency Medicine; PCP Physician Assistant
DX: L02.11 Cutaneous abscess of neck (principal); K21.9 Gastro-esophageal reflux disease without esophagitis; Z87.442 Personal history of urinary calculi; G47.30 Sleep apnea, unspecified; Z87.891 Personal history of nicotine dependence
CPT/HCPCS: 10160; 99283

== ENCOUNTER 2020-11-09 19:30 | Emergency (ER) | payer OTHER, SELFPAY ==
--- NOTE | ~2020-11-09 | CT_ITS ---
EXAMINATION: CT soft tissue neck w con DATE: 11/10/2020 02:21 INDICATION: Right posterior neck soft tissue swelling. TECHNIQUE: Computed tomography (CT) of the neck was performed with 75 mL Omnipaque-350 intravenous co ntrast. The dose-length product was 585.92 mGy-cm. Automated exposure control and iterative reconstru ction technique were employed. COMPARISON: CT dated 07/03/2018 FINDINGS: There is superficial soft tissue swelling along the mid right posterior neck subcutaneous t issues, likely cellulitis. No discrete fluid collection to suggest abscess. There are nonenlarged cer vical lymph nodes which are likely reactive. No intracranial abnormality identified. Thyroid gland is unremarkable. Lung apices are normal. IMPRESSION: 1. Mild superficial soft tissue swelling right posterior neck, likely cellulitis. No evidence for abs cess. Reviewed, dictated and finalized at location A. IMPRESSION: 1. Mild superficial soft tissue swelling right posterior neck, likely celluliti s. No evidence for abscess.
[2020-11-09 19:36] VITALS: BP 159/98; PULSE 80; RESP 17; TEMP 37.2; O2SAT 100
[2020-11-10 00:07] VITALS: BP 156/99; PULSE 79; RESP 16; TEMP 36.2; O2SAT 99
[2020-11-10] MEDS: MORPHINE SULFATE (*CRX) 4 MG/ML INJ IV PUSH ×2 (01:34→03:16)
[2020-11-10] MEDS: SODIUM CHLORIDE 0.9% IV 1,000 ML 999 ML IV CONT (01:34)
[2020-11-10 01:38] LABS: Basophils Percent Auto 0.2 % (0.2-1.2); Eosinophils Absolute Auto 0.3 K/mm3 (0-0.3); Eosinophils Percent Auto 2.8 % (0-4.4); Hematocrit 42.7 % (42.0-52.0); Hemoglobin 14.8 g/dL (14.0-18.0); Immature Granulocyte Absolute 0.05 K/mm3 (0.00-0.031); Immature Granulocyte Percent A 0.5 % (0-0.5); Lymphocytes Absolute Auto 2.36 K/mm3 (0.9-3.2); Lymphocytes Percent Auto 22.4 % (18.3-44.2); Mean Corpuscular HGB Conc 34.7 g/dl (32-36); Mean Corpuscular Hemoglobin 27.8 pg (26-34); Mean Corpuscular Volume 80.3 fl (80-100); Mean Platelet Volume 11.8 fl (7.4-10.4); Monocytes Percent Auto 9.3 % (2.6-8.5); Neutrophils Absolute Auto 6.8 K/mm3 (1.3-6.7); Neutrophils Percent Auto 64.8 % (45.5-73.1); Platelet Count Result 181 k/mm3 (150-375); Red Blood Count 5.32 M/mm3 (4.6-6.20); Red Cell Distribution Width 13.4 % (11.5-14.5); White Blood Count 10.6 K/mm3 (4.5-10.0)
--- NOTE | 2020-11-10 01:46 | ED.GENADULT ---
HPI - General Adult General Chief complaint: Skin/Abscess/Foreign Body Stated complaint: abscess on back of neck Time Seen by Provider: 11/10/20 00:24 History of Present Illness HPI narrative: Patient 35-year-old gentleman who presents the emergency department chief complaint of soft tissue swelling in the posterior aspect of his neck. Patient states also his neck is become more painful and reports it hurts whenever he attempts to move his neck. Patient states it radiates down into his upper shoulder on the right side. The patient denies fevers reports that he has been treated with oral Keflex as an outpatient and has had no improvement in his symptoms. The patient denies any red streaking on his neck denies chills. The patient reported the other day they inserted a needle into the area and drained a small amount of pus from the site. Related Data Home Medications Medication Instructions Recorded Confirmed hydrocodone-acetaminophen 1 tablet PO Q4-5H PRN 04/23/19 04/23/19 sulfamethoxazole-trimethoprim 1 tablet PO BID 04/23/19 04/23/19 meloxicam 12/07/19 Allergies Allergy/AdvReac Type Severity Reaction Status Date / Time [place] And Derivatives Allergy Severe ORAL Verified 11/08/20 11:57 BLISTERS onion Allergy Mild Diarrhea Verified 11/08/20 11:57 diphenhydramine AdvReac Intermediate AGGRESSION Verified 11/08/20 11:57 Review of Systems Review of Systems: A 10 system review of systems was completed on the patient and is negative except for what is stated in the HPI. Nursing and ancillary documentation was reviewed. [facility] Past Medical History Medical History (Updated 11/10/20 @ 03:12 by Hussein Musa MD) Back injury Chronic neck pain Chronic pain of left lower extremity GERD (gastroesophageal reflux disease) Heat stroke Inguinal hernia Bilateral Kidney stone Migraines Sleep apnea with use of continuous positive airway pressure (CPAP) Surgical History Surgical History H/O inguinal hernia repair Bilateral History of appendectomy History of cystoscopy History of extraction of renal calculus S/P ureteral stent placement Family History Family History Father Hypertension Other Diabetes mellitus Social History Social History Smoking status: Former smoker Alcohol intake: current Gender identity (if verbalized by the patient): Male Exam Narrative: GENERAL: Well-appearing, well-nourished, and in no acute distress. HEAD: Normocephalic, atraumatic. EYES: PERRLA and EOMI. ENT: Nares clear, no rhinorrhea or epistaxis. Mucous membranes moist. NECK: Supple. There is a tender swollen area in the superior aspect of the neck on the right side. There is some anterior cervical lymphadenopathy and there is some posterior auricular lymphadenopathy CHEST: Clear to auscultation. No respiratory distress. HEART: Regular rate and rhythm. No murmur heard. Normal peripheral pulses. ABDOMEN: Soft, nontender, nondistended, normal active bowel sounds. EXTREMITIES: Normal range of motion. No edema. SKIN: Warm, dry, no rash. NEURO: No focal deficits. Alert and oriented x3. PSYCH: Normal mood and affect. Course Course Emergency Course: CT scan of the neck shows no evidence of abscess and no evidence of subcu emphysema. Vital Signs Vital signs: Vital Signs Temperature 37.2 C 11/09/20 19:36 Pulse Rate 80 11/09/20 19:36 Respiratory Rate 17 11/09/20 19:36 Blood Pressure 159/98 H 11/09/20 19:36 Pulse Oximetry 100 11/09/20 19:36 Temperature 36.2 C L 11/10/20 00:07 Pulse Rate 80 11/10/20 02:08 Respiratory Rate 16 11/10/20 02:08 Blood Pressure 154/95 H 11/10/20 02:08 Pulse Oximetry 99 11/10/20 02:08 Medical Decision Making Vital Signs Vital Signs: Vital Signs Temperature 3
[2020-11-10 01:50] LABS: Alanine Aminotransferase 28 U/L (4-50); Alkaline Phosphatase 85 U/L (38-126); Anion Gap 4 mmol/L (8-16); Aspartate Amino Transferase 27 U/L (17-59); Bilirubin,Total 1.1 mg/dL (0.2-1.3); Blood Urea Nitrogen 11 mg/dL (9-20); Calcium 8.6 mg/dL (8.4-10.2); Carbon Dioxide 26 mmol/L (22-30); Chloride 104 mmol/L (98-107); Estimated CRCL calculation 160 ml/min; Estimated Glomerular Filt Rate > 60; Glucose 94 mg/dL (65-110); Potassium 3.6 mmol/L (3.4-5.0); Sodium 134 mmol/L (137-145)
[2020-11-10 02:08] VITALS: BP 154/95; PULSE 80; RESP 16; O2SAT 99
[2020-11-10] MEDS: DOXYCYCLINE HYCLATE 100 MG TABLET PO (03:16)
[2020-11-10 03:27] VITALS: BP 142/74; PULSE 74; RESP 19; O2SAT 100
== END 2020-11-10 03:29 | disposition home or self-care (01) ==
PROVIDERS: Emergency Provider Emergency Medicine; PCP Physician Assistant
DX: L03.221 Cellulitis of neck (principal); Z87.891 Personal history of nicotine dependence
CPT/HCPCS: 36415; 70491; 80053; 83605; 85025; 87040; 96361; 96374; 96376; 99284; A9270; J2270; J7030; Q9967

== ENCOUNTER 2020-11-17 03:13 | Emergency (ER) | payer OTHER, SELFPAY ==
--- NOTE | ~2020-11-17 | XR_ITS ---
EXAMINATION: XR chest 2V EXAM DATE: 11/17/2020 03:53 INDICATION: Shortness of breath, cough, sinus congestion since yesterday. TECHNIQUE: Frontal and lateral projections of the chest obtained and reviewed. Comparison is made to prior examination from 07/02/2019. FINDINGS: Left midlung zone subcentimeter nodular density stable, consistent with granuloma. The lung s are otherwise clear. There are no pleural effusions. The cardiomediastinal silhouette is within normal limits. There is no pneumothorax suspected. The bones and soft tissues are unremarkable. IMPRESSION: Lung granuloma. No acute cardiopulmonary findings. Reviewed, dictated and finalized at location A.
[2020-11-17 03:18] VITALS: BP 120/88; PULSE 92; RESP 25; TEMP 37.1; O2SAT 97
--- NOTE | 2020-11-17 03:27 | ECG_ITS ---
Measurements Intervals [place] Rate: 107 P: 24 [place]: 138 QRS: 18 QRSD: 84 T: 62 QT: 336 QTc: 449 Interpretive Statements SINUS TACHYCARDIA BORDERLINE ST-T WAVE ABNORMALITY- HIGH LATERAL LEADS BASELINE ARTIFACT- III, V3-V6 ABNORMAL ECG Electronically Signed On 11-17-2020 7:00:07 CDT by Eric Barbosa D.O.
[2020-11-17 03:52] LABS: Basophils Percent Auto 0.3 % (0.2-1.2); Eosinophils Absolute Auto 0.4 K/mm3 (0-0.3); Eosinophils Percent Auto 4.4 % (0-4.4); Hematocrit 44.8 % (42.0-52.0); Hemoglobin 15.4 g/dL (14.0-18.0); Immature Granulocyte Absolute 0.05 K/mm3 (0.00-0.031); Immature Granulocyte Percent A 0.5 % (0-0.5); Lymphocytes Absolute Auto 1.58 K/mm3 (0.9-3.2); Lymphocytes Percent Auto 16.9 % (18.3-44.2); Mean Corpuscular HGB Conc 34.4 g/dl (32-36); Mean Corpuscular Hemoglobin 27.7 pg (26-34); Mean Corpuscular Volume 80.7 fl (80-100); Mean Platelet Volume 11.6 fl (7.4-10.4); Monocytes Absolute Auto 1.2 K/mm3 (0.1-0.6); Monocytes Percent Auto 12.4 % (2.6-8.5); Neutrophils Absolute Auto 6.1 K/mm3 (1.3-6.7); Neutrophils Percent Auto 65.5 % (45.5-73.1); Platelet Count Result 197 k/mm3 (150-375); Red Blood Count 5.55 M/mm3 (4.6-6.20); Red Cell Distribution Width 13.2 % (11.5-14.5); White Blood Count 9.3 K/mm3 (4.5-10.0)
[2020-11-17 03:55] LABS: EDCOVIDSCREEN Negative (Negative)
[2020-11-17 04:05] LABS: Anion Gap 9 mmol/L (8-16); Blood Urea Nitrogen 15 mg/dL (9-20); Calcium 8.4 mg/dL (8.4-10.2); Carbon Dioxide 19 mmol/L (22-30); Chloride 107 mmol/L (98-107); Estimated CRCL calculation 153 ml/min; Estimated Glomerular Filt Rate > 60; Glucose 100 mg/dL (65-110); Potassium 3.9 mmol/L (3.4-5.0); Sodium 135 mmol/L (137-145)
[2020-11-17 04:16] LABS: Troponin I < 0.012 ng/mL (0.000-0.034)
[2020-11-17 04:29] VITALS: BP 141/87; PULSE 105; RESP 24; O2SAT 95
--- NOTE | 2020-11-17 04:55 | ED.GENADULT ---
HPI - General Adult General Chief complaint: Upper Respiratory Infection Stated complaint: fever and body aches Time Seen by Provider: 11/17/20 03:17 History of Present Illness HPI narrative: Patient is a 35-year-old male who presents ER with cold symptoms. Reports he woke up just prior to arrival with fevers and chills and sweats. He has diffuse body aches. He also has sinus congestion with sore throat and cough. No known sick contacts however patient has been in the ER couple times in the last 2 weeks regarding a skin infection and may have been exposed to Covid at that time. No loss of taste or smell. Reports some chest tightness related to the coughing. Related Data Home Medications Medication Instructions Recorded Confirmed hydrocodone-acetaminophen 1 tablet PO Q4-5H PRN 04/23/19 04/23/19 sulfamethoxazole-trimethoprim 1 tablet PO BID 04/23/19 04/23/19 meloxicam 12/07/19 Allergies Allergy/AdvReac Type Severity Reaction Status Date / Time [place] And Derivatives Allergy Severe ORAL Verified 11/17/20 03:26 BLISTERS onion Allergy Mild Diarrhea Verified 11/17/20 03:26 diphenhydramine AdvReac Intermediate AGGRESSION Verified 11/17/20 03:26 Review of Systems Review of Systems: All systems reviewed & are unremarkable except as noted in HPI and below Constitutional: Constitutional: Reports chills, Reports fatigue and Reports fever(s) ENT: Reports nasal congestion and Reports sore throat Cardiovascular: Cardiovascular: Reports chest pain, Denies rapid heart rate and Denies radiating jaw, neck or arm pain Respiratory: Respiratory: Reports cough, Reports dyspnea and Denies wheezing Gastrointestinal: Gastrointestinal: Denies abdominal pain, Denies nausea and Denies vomiting Musculoskeletal: Musculoskeletal: Denies back pain, Reports myalgias and Denies muscle cramps PMFSH Past Medical History Medical History (Updated 11/17/20 @ 04:59 by Jacques Melvin MD) Back injury Chronic neck pain Chronic pain of left lower extremity GERD (gastroesophageal reflux disease) Heat stroke Inguinal hernia Bilateral Kidney stone Migraines Sleep apnea with use of continuous positive airway pressure (CPAP) Surgical History Surgical History H/O inguinal hernia repair Bilateral History of appendectomy History of cystoscopy History of extraction of renal calculus S/P ureteral stent placement Family History Family History Father Hypertension Other Diabetes mellitus Social History Social History Smoking status: Former smoker Alcohol intake: current Gender identity (if verbalized by the patient): Male Exam Narrative: GENERAL: Uncomfortable appearing, morbidly obese, and in no acute distress. HEAD: Normocephalic, atraumatic. ENT: Mucous membranes moist. No pharyngeal erythema or tonsillar exudate/hypertrophy. NECK: Supple. CHEST: Clear to auscultation. No respiratory distress. HEART: Tachycardic and regular. Normal peripheral pulses. ABDOMEN: Soft, nontender, nondistended. EXTREMITIES: Normal range of motion. No edema. SKIN: Warm, diaphoretic, no rash. NEURO: Alert and oriented x3. Course Course Emergency Course: Rapid Covid negative. Will send PCR as he could be at risk for false negative and has symptoms. Additionally there is high community transmission at this time. Discussed need for self-isolation. Patient verbalized understanding. Discharge home. Vital Signs Vital signs: Vital Signs Temperature 98.7 F 11/17/20 03:18 Pulse Rate 92 11/17/20 03:18 Respiratory Rate 25 H 11/17/20 03:18 Blood Pressure 120/88 11/17/20 03:18 Pulse Oximetry 97 11/17/20 03:18 Temperature 98.7 F 11/17/20 03:18 Pulse Rate 105 H 11/17/20 04:29 Respiratory Rate 24 H 11/17/20 04:29 Blood Pressure 141
[2020-11-17 05:15] VITALS: BP 152/97; PULSE 103; RESP 22; O2SAT 98
[2020-11-18 01:23] LABS: SARS-CoV-2 RNA PCR Negative
== END 2020-11-17 05:15 | disposition home or self-care (01) ==
PROVIDERS: Emergency Provider Emergency Medicine; PCP Physician Assistant
DX: J06.9 Acute upper respiratory infection, unspecified (principal); Z20.822 Contact with and (suspected) exposure to COVID-19; K21.9 Gastro-esophageal reflux disease without esophagitis; Z87.442 Personal history of urinary calculi; G47.30 Sleep apnea, unspecified; G89.29 Other chronic pain; M54.2 Cervicalgia; M79.605 Pain in left leg; Z87.891 Personal history of nicotine dependence; R00.0 Tachycardia, unspecified; R94.31 Abnormal electrocardiogram [ECG] [EKG]
CPT/HCPCS: 36415; 71046; 80048; 84484; 85025; 87426; 93005; 99284; C9803; U0003; U0005

== ENCOUNTER 2020-12-20 09:30 | Emergency (ER) | payer OTHER, SELFPAY ==
--- NOTE | ~2020-12-20 | XR_ITS ---
EXAMINATION: XR chest 1V portable EXAM DATE: 12/20/2020 11:31 INDICATION: Chest pain and cough. COVID exposure. TECHNIQUE: Portable AP frontal chest x-ray was obtained. Comparison is made to prior examination from 11/17/2020. FINDINGS: Suspect interval development of small amount of right basilar pneumonia or edema. Left midl rowena zone 9 mm nodular density appears unchanged compared to 07/02/2019, most likely a granuloma. There are no pleural effusions. Mild cardiomegaly and pulmonary vascular congestion. There is no pneumoth orax suspected. The bones and soft tissues are unremarkable. IMPRESSION: Suspicion of developing right basilar pneumonia or edema. Left midlung zone nodule stable , probably granuloma. Reviewed, dictated and finalized at location A. IMPRESSION: Suspicion of developing right basilar pneumonia or edema. Left midl rowena zone nodule stable, probably granuloma.
[2020-12-20 09:36] VITALS: BP 154/99; PULSE 70; RESP 16; TEMP 36.2; O2SAT 98
[2020-12-20 10:06] LABS: Basophils Percent Auto 0.3 % (0.2-1.2); Eosinophils Absolute Auto 0.2 K/mm3 (0-0.3); Eosinophils Percent Auto 2.2 % (0-4.4); Hematocrit 40.7 % (42.0-52.0); Hemoglobin 14.2 g/dL (14.0-18.0); Immature Granulocyte Absolute 0.04 K/mm3 (0.00-0.031); Immature Granulocyte Percent A 0.6 % (0-0.5); Lymphocytes Absolute Auto 1.29 K/mm3 (0.9-3.2); Lymphocytes Percent Auto 17.9 % (18.3-44.2); Mean Corpuscular HGB Conc 34.9 g/dl (32-36); Mean Corpuscular Hemoglobin 28.1 pg (26-34); Mean Corpuscular Volume 80.4 fl (80-100); Mean Platelet Volume 11.6 fl (7.4-10.4); Monocytes Absolute Auto 0.7 K/mm3 (0.1-0.6); Monocytes Percent Auto 9.2 % (2.6-8.5); Neutrophils Percent Auto 69.8 % (45.5-73.1); Platelet Count Result 158 k/mm3 (150-375); Red Blood Count 5.06 M/mm3 (4.6-6.20); Red Cell Distribution Width 13.2 % (11.5-14.5); White Blood Count 7.2 K/mm3 (4.5-10.0)
[2020-12-20 10:26] LABS: Alanine Aminotransferase 37 U/L (4-50); Albumin Level 4.1 g/dL (3.5-5.1); Alkaline Phosphatase 77 U/L (38-126); Anion Gap 7 mmol/L (8-16); Aspartate Amino Transferase 31 U/L (17-59); Blood Urea Nitrogen 11 mg/dL (9-20); Calcium 8.2 mg/dL (8.4-10.2); Carbon Dioxide 26 mmol/L (22-30); Chloride 107 mmol/L (98-107); Estimated CRCL calculation 221 ml/min; Estimated Glomerular Filt Rate > 60; Glucose 117 mg/dL (65-110); Lipase 57 U/L (23-300); Potassium 3.8 mmol/L (3.4-5.0); Sodium 140 mmol/L (137-145)
[2020-12-20 10:48] VITALS: BP 118/65; PULSE 66; RESP 18; O2SAT 98
--- NOTE | 2020-12-20 10:54 | ECG_ITS ---
Measurements Intervals [place] Rate: 54 P: 14 ME: 143 QRS: 33 QRSD: 86 T: 50 QT: 419 QTc: 398 Interpretive Statements SINUS BRADYCARDIA BASELINE ARTIFACT- I, II, III, AVR, AVL, AVF BORDERLINE ECG Electronically Signed On 12-20-2020 14:18:48 CDT by Eric Barbosa D.O.
--- NOTE | 2020-12-20 10:57 | ED.GENADULT ---
HPI - General Adult General Chief complaint: Unspecified Stated complaint: zaman/request covid test Time Seen by Provider: 12/20/20 10:21 Source: patient Mode of arrival: ambulatory Limitations: no limitations History of Present Illness HPI narrative: Patient presents for evaluation of nausea, vomiting, diarrhea as of this morning. Patient states he woke from sleep with his symptoms. Yesterday he states that he generally did not feel well. He cannot give me any specific symptoms that he was experiencing yesterday. He states one of his tested positive for Covid this week. He denies any fever, chills. He indicates that he has experienced some abdominal cramping. He has also experienced a productive cough of yellow sputum and shortness of breath, which are not new symptoms. He has an underlying history of bronchitis. He has experienced some sternal chest pain during episodes of vomiting. Reports a frontal headache that he describes as an ice pack to the head , rated 8 out of 10 in severity. He has a history of migraines but current symptoms are not consistent with those experienced in the past with migraines. He does not smoke. He drinks ETOH rarely. Denies illicit drug use. Related Data Home Medications Medication Instructions Recorded Confirmed albuterol sulfate INHALATION 12/20/20 aripiprazole 2 mg 12/20/20 citalopram 20 mg 12/20/20 tadalafil 27.5 mg PO DAILY 12/20/20 Allergies Allergy/AdvReac Type Severity Reaction Status Date / Time [place] And Derivatives Allergy Severe ORAL Verified 12/20/20 10:41 BLISTERS onion Allergy Mild Diarrhea Verified 12/20/20 10:41 diphenhydramine AdvReac Intermediate AGGRESSION Verified 12/20/20 10:41 flu shot Allergy Other Uncoded 12/20/20 10:41 Review of Systems Review of Systems: CONSTITUTIONAL: Denies fever, chills, or sweats. EYES: Denies visual changes, redness, or discharge. ENT: Denies rhinorrhea, congestion, sore throat, or otalgia. CARDIOVASCULAR: Reports chest pain. Denies palpitations, or edema. RESPIRATORY: Reports productive cough of yellow sputum and shortness of breath GASTROINTESTINAL: Reports nausea, vomiting, diarrhea, abdominal cramping GENITOURINARY: Denies dysuria or hematuria. SKIN: Denies rash or itching. MUSCULOSKELETAL: Denies back pain, joint pain, or myalgia. NEUROLOGIC: Reports headache. Denies numbness, dizziness, or weakness. PSYCHIATRIC: Denies anxiety or depression. [facility] Past Medical History Medical History (Updated 12/20/20 @ 13:39 by JOSEPHINE Wei, ) Back injury Chronic neck pain Chronic pain of left lower extremity GERD (gastroesophageal reflux disease) Heat stroke Inguinal hernia Bilateral Kidney stone Migraines Sleep apnea with use of continuous positive airway pressure (CPAP) Surgical History Surgical History H/O inguinal hernia repair Bilateral History of appendectomy History of cystoscopy History of extraction of renal calculus S/P ureteral stent placement Family History Family History Father Hypertension Other Diabetes mellitus Social History Social History Smoking status: Former smoker Alcohol intake: current Gender identity (if verbalized by the patient): Male Exam Narrative: GENERAL: Visibly uncomfortable. Well-nourished, and in no acute distress. BMI 53.5 HEAD: Normocephalic, atraumatic. EYES: PERRLA and EOMI. ENT: Nares clear, no rhinorrhea or epistaxis. Mucous membranes moist. Oropharynx without tonsillar hypertrophy exudate or other lesions. Bilateral TMs pearly garcia nonbulging NECK: Supple. No adenopathy or masses. No carotid bruits or JVD CHEST: Clear to auscultation. No respiratory distress. No wheezes rales or rhonchi HEART: Regular rate and rhythm. No murmur heard. Normal peripheral pulses.
[2020-12-20] MEDS: SODIUM CHLORIDE 0.9% IV 1,000 ML 999 ML IV CONT (11:15)
[2020-12-20] MEDS: ONDANSETRON INJ 4 MG/2 ML VIAL IV PUSH (11:15)
[2020-12-20] MEDS: FAMOTIDINE 20 MG/2 ML VIAL IV PUSH (11:15)
--- NOTE | 2020-12-20 12:05 | PC.NURSE ---
rapid covid sent to lab. [place] notified.
--- NOTE | 2020-12-20 12:05 | PC.NURSE ---
pt asked for urine specimen.
[2020-12-20 12:17] LABS: Troponin I < 0.012 ng/mL (0.000-0.034)
[2020-12-20 12:24] LABS: EDCOVIDSCREEN Negative (Negative)
[2020-12-20 14:08] VITALS: BP 122/78; PULSE 79; RESP 16; TEMP 36.8; O2SAT 99
[2020-12-20 14:23] LABS: Add Urine Microscopic? YES; Appearance Urine Clear (Clear); Bacteria Urine Trace /hpf; Bilirubin Urine Negative (Negative); Blood Urine Negative (Negative); Color Urine Yellow (Yellow); Glucose Urine UA Negative (Negative); Ketones Urine Negative (Negative); Leukocyte Esterase Ur Negative LEU/UL (Negative); Mucus Urine Rare /lpf; Nitrate Urine Negative (Negative); Protein Urine 1+ mg/dL (Negative); Specific Grav Ur 1.023 (1.001-1.035); Squamous Epithelial Cell Urine Rare /hpf (Few); Urobilinogen Urine Negative mg/dL (<2.0); WBC Urine 0-3 /hpf
== END 2020-12-20 14:09 | disposition home or self-care (01) ==
PROVIDERS: Emergency Medicine; Emergency Provider Nurse Practitioner; PCP Physician Assistant
DX: J18.9 Pneumonia, unspecified organism (principal); Z20.822 Contact with and (suspected) exposure to COVID-19; K21.9 Gastro-esophageal reflux disease without esophagitis; Z87.442 Personal history of urinary calculi; G47.30 Sleep apnea, unspecified; Z87.891 Personal history of nicotine dependence; R00.1 Bradycardia, unspecified; R91.1 Solitary pulmonary nodule
CPT/HCPCS: 36415; 71045; 80053; 81001; 83690; 84484; 85025; 87426; 87804; 93005; 96374; 96375; 99284; A9270; C9803; J2405; J7030

== ENCOUNTER 2021-01-22 09:56 | Outpatient (CLI) | payer OTHER, SELFPAY ==
[2021-01-22 11:21] LABS: Add Urine Microscopic? NO; Appearance Urine Clear (Clear); Bilirubin Urine Negative (Negative); Blood Urine Negative (Negative); Color Urine Yellow (Yellow); Glucose Urine UA Negative (Negative); Ketones Urine Negative (Negative); Leukocyte Esterase Ur Negative LEU/UL (Negative); Nitrate Urine Negative (Negative); Protein Urine Negative (Negative); Specific Grav Ur 1.011 (1.001-1.035); Urobilinogen Urine Negative mg/dL (<2.0)
[2021-01-22 11:26] LABS: Alanine Aminotransferase 33 U/L (4-50); Alkaline Phosphatase 75 U/L (38-126); Anion Gap 8 mmol/L (8-16); Aspartate Amino Transferase 33 U/L (17-59); Bilirubin,Total 0.7 mg/dL (0.2-1.3); Blood Urea Nitrogen 9 mg/dL (9-20); Calcium 8.5 mg/dL (8.4-10.2); Carbon Dioxide 26 mmol/L (22-30); Chloride 105 mmol/L (98-107); Cholesterol 159 mg/dL (0-200); Estimated Glomerular Filt Rate > 60; Glucose 97 mg/dL (65-110); HDL Direct 34 mg/dL; Potassium 3.6 mmol/L (3.4-5.0); Sodium 139 mmol/L (137-145); Triglycerides 98 mg/dL (<150)
[2021-01-22 12:01] LABS: LDL Cholesterol Direct 100 mg/dL
[2021-01-22 12:05] LABS: HIV 1/2 Ab P24 Ag Result Negative (Negative)
[2021-01-22 12:10] LABS: Free T4 Free Thyroxine 1.27 ng/mL (0.78-2.19)
[2021-01-22 12:25] LABS: Hepatitis B Surface Antigen Negative (Negative)
[2021-01-22 12:31] LABS: HAV RESULT Negative (Negative); Hepatitis B Core IgM Result Negative (Negative)
[2021-01-22 12:32] LABS: Folic Acid 8.8 ng/mL (2.76->20)
[2021-01-22 12:42] LABS: Hepatitis C Virus Antibody Negative (Negative)
[2021-01-22 13:20] LABS: Hemoglobin A1C 4.7 % (<5.7)
[2021-01-24 15:38] LABS: Rapid Plasma Reagin Non-Reactive (NonReactive)
== END 2021-01-22 09:57 | disposition home or self-care (01) ==
LOC: ANHLAB 09:57
PROVIDERS: PCP Physician Assistant; Visit Provider Physician Assistant
DX: Z13.220 Encounter for screening for lipoid disorders (principal); Z79.899 Other long term (current) drug therapy; Z13.9 Encounter for screening, unspecified; Z11.3 Encounter for screening for infections with a predominantly sexual mode of transmission
CPT/HCPCS: 36415; 80053; 80061; 80074; 81003; 82607; 82746; 83036; 84439; 84443; 86413; 86592; 86695; 86696; 86703; 87491; 87591; G0432

== ENCOUNTER 2021-04-03 10:36 | Emergency (ER) | payer OTHER, SELFPAY ==
--- NOTE | ~2021-04-03 | XR_ITS ---
EXAMINATION: XR chest 1V portable DATE: 04/03/2021 11:21 INDICATION: Shortness of breath, cough and congestion. TECHNIQUE: frontal view of the chest was obtained. COMPARISON: Chest radiograph dated 12/20/20 FINDINGS: The lungs remain clear with no focal airspace opacities, pulmonary edema, pleural effusion or pneumot horax. The cardiomediastinal silhouette is normal. IMPRESSION: 1. No acute cardiopulmonary disease. Reviewed, dictated and finalized at location B. OR LVN
--- NOTE | 2021-04-03 10:37 | PC.NURSE ---
Pt states he has a COVID test pending through work
[2021-04-03 10:52] VITALS: BP 143/76; PULSE 81; RESP 23; TEMP 36.3; O2SAT 96
[2021-04-03 10:57] VITALS: O2SAT 96
--- NOTE | 2021-04-03 10:59 | ECG_ITS ---
Measurements Intervals [place] Rate: 83 P: 12 [place]: 134 QRS: 8 QRSD: 82 T: 51 QT: 357 QTc: 421 Interpretive Statements SINUS RHYTHM VOLTAGE CRITERIA FOR LVH BASELINE ARTIFACT- I, II, III, AVR, AVL, AVF BORDERLINE ECG Electronically Signed On 04-03-2021 13:56:38 [employer] by Eric Barbosa D.O.
[2021-04-03 11:50] LABS: Basophils Absolute Auto 0.1 K/mm3 (0.0-0.1); Basophils Percent Auto 0.5 % (0.2-1.2); Eosinophils Absolute Auto 0.3 K/mm3 (0-0.3); Eosinophils Percent Auto 3.3 % (0-4.4); Hematocrit 49.3 % (42.0-52.0); Hemoglobin 16.7 g/dL (14.0-18.0); Immature Granulocyte Absolute 0.03 K/mm3 (0.00-0.031); Immature Granulocyte Percent A 0.3 % (0-0.5); Lymphocytes Absolute Auto 1.79 K/mm3 (0.9-3.2); Lymphocytes Percent Auto 18.6 % (18.3-44.2); Mean Corpuscular HGB Conc 33.9 g/dl (32-36); Mean Corpuscular Hemoglobin 27.6 pg (26-34); Mean Corpuscular Volume 81.5 fl (80-100); Mean Platelet Volume 11.6 fl (7.4-10.4); Monocytes Absolute Auto 1.1 K/mm3 (0.1-0.6); Neutrophils Absolute Auto 6.4 K/mm3 (1.3-6.7); Neutrophils Percent Auto 66.3 % (45.5-73.1); Platelet Count Result 226 k/mm3 (150-375); Red Blood Count 6.05 M/mm3 (4.6-6.20); Red Cell Distribution Width 13.3 % (11.5-14.5); White Blood Count 9.6 K/mm3 (4.5-10.0)
[2021-04-03 12:03] VITALS: BP 119/79; PULSE 84; RESP 18; O2SAT 95
[2021-04-03 12:32] LABS: Alanine Aminotransferase 35 U/L (4-50); Alkaline Phosphatase 79 U/L (38-126); Anion Gap 7 mmol/L (8-16); Aspartate Amino Transferase 28 U/L (17-59); Bilirubin,Total 1.2 mg/dL (0.2-1.3); Blood Urea Nitrogen 11 mg/dL (9-20); Calcium 8.5 mg/dL (8.4-10.2); Carbon Dioxide 27 mmol/L (22-30); Chloride 103 mmol/L (98-107); Estimated CRCL calculation 157 ml/min; Estimated Glomerular Filt Rate > 60; Glucose 103 mg/dL (65-110); Potassium 4.1 mmol/L (3.4-5.0); Sodium 137 mmol/L (137-145)
--- NOTE | 2021-04-03 14:00 | ED.GENADULT ---
HPI - General Adult General Chief complaint: Shortness of Breath/Dyspnea Stated complaint: SOB, cough Time Seen by Provider: 04/03/21 11:14 History of Present Illness HPI narrative: Patient is a 35-year-old male who presents ER with shortness of breath. Worsening over the last day. He has associated sinus congestion with pain in his ears as well as body aches. He was Covid swabbed at [facility] 2 days ago and is awaiting his results. He did have a negative flu. No chest pain or chest pressure. Has not tried any sinus decongestants. Related Data Home Medications Medication Instructions Recorded Confirmed albuterol sulfate INHALATION 12/20/20 aripiprazole 2 mg 12/20/20 citalopram 20 mg 12/20/20 tadalafil 27.5 mg PO DAILY 12/20/20 Allergies Allergy/AdvReac Type Severity Reaction Status Date / Time [place] And Derivatives Allergy Severe ORAL Verified 04/03/21 10:59 BLISTERS onion Allergy Mild Diarrhea Verified 04/03/21 10:59 diphenhydramine AdvReac Intermediate AGGRESSION Verified 04/03/21 10:59 flu shot Allergy Other Uncoded 04/03/21 10:59 Review of Systems Review of Systems: All systems reviewed & are unremarkable except as noted in HPI and below Constitutional: Constitutional: Reports chills, Reports fever(s) and Denies weakness ENT: Reports nasal congestion and Reports sore throat Comments: No loss of taste or smell Cardiovascular: Cardiovascular: Denies chest pain, Denies rapid heart rate and Denies radiating jaw, neck or arm pain Respiratory: Respiratory: Reports cough, Reports dyspnea and Denies wheezing Gastrointestinal: Gastrointestinal: Denies abdominal pain, Denies nausea and Denies vomiting [facility] Past Medical History Medical History (Updated 04/03/21 @ 14:06 by Jacques Melvin MD) Back injury Chronic neck pain Chronic pain of left lower extremity GERD (gastroesophageal reflux disease) Heat stroke Inguinal hernia Bilateral Kidney stone Migraines Sleep apnea with use of continuous positive airway pressure (CPAP) Surgical History Surgical History H/O inguinal hernia repair Bilateral History of appendectomy History of cystoscopy History of extraction of renal calculus S/P ureteral stent placement Family History Family History Father Hypertension Other Diabetes mellitus Social History Social History Smoking status: Former smoker Alcohol intake: current Gender identity (if verbalized by the patient): Male Exam Narrative: GENERAL: Well-appearing, obese, and in no acute distress. HEAD: Normocephalic, atraumatic. ENT: TMs normal bilaterally. CHEST: Clear to auscultation. No respiratory distress. HEART: Regular rate and rhythm. Normal peripheral pulses. ABDOMEN: Soft, nontender, nondistended. EXTREMITIES: Normal range of motion. No edema. SKIN: Warm, dry, no rash. NEURO: Alert and oriented x3. PSYCH: Normal mood and affect. Course Course Emergency Course: Unremarkable evaluation. No hypoxia. Discharge home. Vital Signs Vital signs: Vital Signs Temperature 97.4 F L 04/03/21 10:52 Pulse Rate 81 04/03/21 10:52 Respiratory Rate 23 H 04/03/21 10:52 Blood Pressure 143/76 H 04/03/21 10:52 Pulse Oximetry 96 04/03/21 10:52 Temperature 97.4 F L 04/03/21 10:52 Pulse Rate 84 04/03/21 12:03 Respiratory Rate 18 04/03/21 12:03 Blood Pressure 119/79 04/03/21 12:03 Pulse Oximetry 95 04/03/21 12:03 Medical Decision Making Vital Signs Vital Signs: Vital Signs Temperature 97.4 F L 04/03/21 10:52 Pulse Rate 81 04/03/21 10:52 Respiratory Rate 23 H 04/03/21 10:52 Blood Pressure 143/76 H 04/03/21 10:52 Pulse Oximetry 96 04/03/21 10:52 Temperature 97.4 F L 04/03/21 10:52 Pulse Rate 84 04/03/21 12:03 Respiratory Rate 18 01
[2021-04-03 14:08] VITALS: BP 146/88; PULSE 89; RESP 20; O2SAT 97
[2021-04-03 14:22] VITALS: BP 116/98; PULSE 78; RESP 18; O2SAT 97
== END 2021-04-03 14:24 | disposition home or self-care (01) ==
PROVIDERS: Physician Assistant; Emergency Provider Emergency Medicine; PCP Physician Assistant
DX: B34.9 Viral infection, unspecified (principal); Z20.822 Contact with and (suspected) exposure to COVID-19; K21.9 Gastro-esophageal reflux disease without esophagitis; Z87.442 Personal history of urinary calculi; G47.30 Sleep apnea, unspecified; Z87.891 Personal history of nicotine dependence; R94.31 Abnormal electrocardiogram [ECG] [EKG]
CPT/HCPCS: 36415; 71045; 80053; 85025; 93005; 99284

== ENCOUNTER 2021-09-21 00:28 | Emergency (ER) | payer OTHER, SELFPAY ==
[2021-09-21] VITALS (14 sets, daily range): BP systolic 147–160; BP diastolic 88–125; PULSE 92–112; RESP 13–29; TEMP 36.7; O2SAT 96–99
--- NOTE | ~2021-09-21 | XR_ITS ---
XR chest 2V DATE: 09/21/2021 01:18 INDICATION: Cough TECHNIQUE: PA and lateral views COMPARISON: 04/03/2021 portable AP chest FINDINGS: There is minimal infiltrate or atelectasis at the lung bases. Normal heart size. No hilar or mediastinal enlargement. No pulmonary consolidation, pleural effusion or pneumothorax. IMPRESSION: Minimal infiltrate or atelectasis at the lung bases Reviewed, dictated and finalized at location B.
--- NOTE | 2021-09-21 01:00 | ED.SOB ---
HPI - SOB/Dyspnea General Chief Complaint: Shortness of Breath/Dyspnea Stated Complaint: SOB Time Seen by Provider: 09/21/21 00:38 History of Present Illness HPI Narrative: 35-year-old male presents emergency room for evaluation of shortness of breath and cough. Patient states that 2 weeks ago he developed shortness of breath and cough, was seen and [facility] and was diagnosed with chronic bronchitis. Patient has no known history of smoking or exposure to any environmental fumes. Patient was given a course of doxycycline and prednisone, which she says he finished and is not helping. Patient was then seen his primary care physician a week later, and was started on albuterol inhaler and a steroid. Patient states he received no resolution of symptoms after that intervention. Patient states that the cough has remained constant for the last 2 weeks, causing him some chest discomfort, and for him to have multiple episodes of posttussive emesis. Related Data Home Medications Medication Instructions Recorded Confirmed albuterol sulfate 90 mcg/actuation inhalation 12/20/20 aerosol inhaler aripiprazole 2 mg tablet 2 mg 12/20/20 citalopram 20 mg tablet 20 mg 12/20/20 tadalafil 20 mg tablet 27.5 mg PO DAILY 12/20/20 Allergies Allergy/AdvReac Type Severity Reaction Status Date / Time [place] And Derivatives Allergy Severe ORAL Verified 04/03/21 10:59 BLISTERS onion Allergy Mild Diarrhea Verified 04/03/21 10:59 diphenhydramine AdvReac Intermediate AGGRESSION Verified 04/03/21 10:59 flu shot Allergy Other Uncoded 04/03/21 10:59 Review of Systems Review of Systems: CONSTITUTIONAL: Denies fever, chills, or sweats. EYES: Denies visual changes, redness, or discharge. ENT: Denies rhinorrhea, congestion, sore throat, or otalgia. CARDIOVASCULAR: Denies chest pain, palpitations, or edema. RESPIRATORY: Reports cough or dyspnea. GASTROINTESTINAL: Denies abdominal pain, nausea, vomiting, or diarrhea. GENITOURINARY: Denies dysuria or hematuria. SKIN: Denies rash or itching. MUSCULOSKELETAL: Denies back pain, joint pain, or myalgia. NEUROLOGIC: Denies headache, numbness, dizziness, or weakness. PSYCHIATRIC: Denies anxiety or depression. [facility] Past Medical History Medical History (Updated 09/21/21 @ 02:19 by Elvis Valdes APRN) Back injury Chronic neck pain Chronic pain of left lower extremity GERD (gastroesophageal reflux disease) Heat stroke Inguinal hernia Bilateral Kidney stone Migraines Sleep apnea with use of continuous positive airway pressure (CPAP) Surgical History Surgical History H/O inguinal hernia repair Bilateral History of appendectomy History of cystoscopy History of extraction of renal calculus S/P ureteral stent placement Family History Family History Father Hypertension Other Diabetes mellitus Social History Social History Smoking status: Former smoker Alcohol intake: current Gender identity (if verbalized by the patient): Male Exam Narrative: GENERAL: Well-appearing, well-nourished, no physical limitations HEAD: Normocephalic, atraumatic. EYES: Conjunctivae normal, PERRLA and EOMI. ENT: External nose normal, Nares clear, no rhinorrhea or epistaxis. Mucous membranes moist. Oropharynx without tonsillar hypertrophy exudate or other lesions. External ears normal, bilateral TMs normal bilaterally NECK: Supple. No meningeal signs. No adenopathy or masses. No carotid bruits or JVD CHEST: Mild respiratory distress respiratory rate between 20 and 28.. Decreased breath sounds throughout HEART: Regular rate and rhythm. No murmur heard. Normal peripheral pulses. ABDOMEN: Soft, nontender, morbidly obese, normal active bowel sounds. EXTREMITIES: Normal range of motion. No edema. No clubbing or cyanosis S
[2021-09-21 01:28] LABS: Basophils Percent Auto 0.3 % (0.2-1.2); Eosinophils Absolute Auto 0.4 K/mm3 (0-0.3); Eosinophils Percent Auto 3.2 % (0-4.4); Hematocrit 41.5 % (42.0-52.0); Hemoglobin 14.2 g/dL (14.0-18.0); Immature Granulocyte Absolute 0.09 K/mm3 (0.00-0.031); Immature Granulocyte Percent A 0.7 % (0-0.5); Lymphocytes Absolute Auto 2.36 K/mm3 (0.9-3.2); Lymphocytes Percent Auto 17.1 % (18.3-44.2); Mean Corpuscular HGB Conc 34.2 g/dl (32-36); Mean Corpuscular Hemoglobin 27.8 pg (26-34); Mean Corpuscular Volume 81.2 fl (80-100); Mean Platelet Volume 11.7 fl (7.4-10.4); Monocytes Absolute Auto 1.2 K/mm3 (0.1-0.6); Monocytes Percent Auto 8.6 % (2.6-8.5); Neutrophils Absolute Auto 9.7 K/mm3 (1.3-6.7); Neutrophils Percent Auto 70.1 % (45.5-73.1); Platelet Count Result 189 k/mm3 (150-375); Red Blood Count 5.11 M/mm3 (4.6-6.20); Red Cell Distribution Width 13.5 % (11.5-14.5); White Blood Count 13.8 K/mm3 (4.5-10.0)
[2021-09-21 01:39] LABS: Alanine Aminotransferase 34 U/L (6-50); Albumin Level 3.8 g/dL (3.5-5.1); Alkaline Phosphatase 71 U/L (38-126); Anion Gap 2 mmol/L (8-16); Aspartate Amino Transferase 25 U/L (17-59); Bilirubin,Total 0.6 mg/dL (0.2-1.3); Blood Urea Nitrogen 15 mg/dL (9-20); Calcium 8.4 mg/dL (8.4-10.2); Carbon Dioxide 29 mmol/L (22-30); Chloride 107 mmol/L (98-107); Estimated CRCL calculation 142 ml/min; Estimated Glomerular Filt Rate > 60; Glucose 110 mg/dL (65-110); Potassium 3.7 mmol/L (3.4-5.0); Sodium 138 mmol/L (137-145)
[2021-09-21 01:47] LABS: NT Pro B Type Natriuretic Pept 69 pg/mL (5-100)
[2021-09-21 01:48] LABS: D Dimer 0.37 ug/mL (<0.48)
[2021-09-21 02:05] LABS: SARS-CoV-2 RNA PCR Negative
[2021-09-21] MEDS: IPRATROPIUM BR 0.02% INH SOLN 0.5 MG/2.5 ML VIAL INHALATION (02:15)
[2021-09-21] MEDS: ALBUTEROL SULFATE NEB 2.5 MG/3 ML INH INHALATION (02:15)
--- NOTE | 2021-09-21 02:16 | ECG_ITS ---
Measurements Intervals [place] Rate: 98 P: 23 NM: 138 QRS: 27 QRSD: 93 T: 46 QT: 348 QTc: 446 Interpretive Statements SINUS RHYTHM NORMAL ECG COMPARED TO ECG 04/03/2021 11:29:40 NO SIGNIFICANT CHANGES Electronically Signed On 09-21-2021 7:20:15 CDT by Wm Woody M.D.
[2021-09-21 02:58] LABS: Lactic Acid Reflex 1.1 mmol/L (0.7-2.0)
== END 2021-09-21 03:44 | disposition home or self-care (01) ==
PROVIDERS: Emergency Provider Nurse Practitioner Family; PCP Physician Assistant
DX: J18.9 Pneumonia, unspecified organism (principal); Z20.822 Contact with and (suspected) exposure to COVID-19; K21.9 Gastro-esophageal reflux disease without esophagitis; Z87.442 Personal history of urinary calculi; G47.30 Sleep apnea, unspecified; Z87.891 Personal history of nicotine dependence
CPT/HCPCS: 36415; 71046; 80053; 83605; 83880; 85025; 85380; 93005; 94640; 96365; 99284; C9803; J1956; U0003; U0005

== ENCOUNTER 2021-10-21 06:28 | Emergency (ER) | payer OTHER, SELFPAY ==
[2021-10-21 06:32] VITALS: BP 149/91; PULSE 84; RESP 18; TEMP 36.1; O2SAT 97
--- NOTE | 2021-10-21 07:37 | ED.EYEPROB ---
HPI - Eye Problem General Chief complaint: Eye Problems Stated complaint: right eye swelling Time Seen by Provider: 10/21/21 07:07 History of Present Illness HPI Narrative: Pt says he is not sure if he got something in his eye or not but it is itching and swllen. Pt says he thought he may have seen something on his eyelash, he rubbed his eye and tried to get it out and then his eye and eyelid started swelling. Related Data Home Medications Medication Instructions Recorded Confirmed albuterol sulfate 90 mcg/actuation inhalation 12/20/20 aerosol inhaler aripiprazole 2 mg tablet 2 mg 12/20/20 citalopram 20 mg tablet 20 mg 12/20/20 tadalafil 20 mg tablet 27.5 mg PO DAILY 12/20/20 Allergies Allergy/AdvReac Type Severity Reaction Status Date / Time [place] And Derivatives Allergy Severe ORAL Verified 10/21/21 06:40 BLISTERS onion Allergy Mild Diarrhea Verified 10/21/21 06:40 pineapple Allergy Blister Verified 10/21/21 06:42 diphenhydramine AdvReac Intermediate AGGRESSION Verified 10/21/21 06:40 flu shot Allergy Other Uncoded 10/21/21 06:40 Review of Systems Review of Systems: All systems reviewed & are unremarkable except as noted in HPI and below PMFSH Past Medical History Medical History (Updated 10/21/21 @ 07:45 by Dominique Clalejas III, DO) Back injury Chronic neck pain Chronic pain of left lower extremity GERD (gastroesophageal reflux disease) Heat stroke Inguinal hernia Bilateral Kidney stone Migraines Sleep apnea with use of continuous positive airway pressure (CPAP) Surgical History Surgical History H/O inguinal hernia repair Bilateral History of appendectomy History of cystoscopy History of extraction of renal calculus S/P ureteral stent placement Family History Family History Father Hypertension Other Diabetes mellitus Social History Social History Smoking status: Former smoker Alcohol intake: current Gender identity (if verbalized by the patient): Male Exam Const: General: healthy appearing Nutritional Appearance: well nourished Orientation/consciousness: patient oriented x3 Limitations: no limitations HENMT: Head: normal to inspection Eyes: Conjunctivae: conjunctivae normal (sclera swollen lateral right eye) Pupils: Equal, round and reactive pupils present EOM: EOMs intact bilaterally Direct Ophthalmoscopy: no photophobia Neck: Neck: normal visual inspection Resp: Effort & Inspection: normal respiratory effort Auscultation: clear to auscultation bilaterally Cardio: Rate: regular rate Rhythm: regular rhythm Skin: General skin exam: normal color Rashes: no rashes Neuro: General: patient oriented x3, moves all extremities, no meningeal signs and no focal motor deficits Cranial nerves: Yes Nystagmus not present Speech: normal speech Extrem: General: normal to inspection Psych: Mental Status: mental status grossly normal Affect: normal affect Attitude: cooperative Course Vital Signs Vital signs: Vital Signs Temperature 97.0 F L 10/21/21 06:32 Pulse Rate 84 10/21/21 06:32 Respiratory Rate 18 10/21/21 06:32 Blood Pressure 149/91 H 10/21/21 06:32 Pulse Oximetry 97 10/21/21 06:32 Oxygen Delivery Room Air 10/21/21 06:32 Temperature 97.0 F L 10/21/21 06:32 Pulse Rate 84 10/21/21 06:32 Respiratory Rate 18 10/21/21 06:32 Blood Pressure 149/91 H 10/21/21 06:32 Pulse Oximetry 97 10/21/21 06:32 Oxygen Delivery Room Air 10/21/21 06:32 Procedures FB Removal Eye Foreign Body #1: Foreign Body Removal Date: 10/21/21 Location: eye (R) Topical anesthetic used: tetracaine Evidence of corneal penetration: No Procedure performed under: slit-lamp Patient tolerated procedure: well Foreign Body Marc
[2021-10-21 07:53] VITALS: BP 158/114; PULSE 79; RESP 16; O2SAT 98
== END 2021-10-21 07:55 | disposition home or self-care (01) ==
PROVIDERS: Emergency Provider Emergency Medicine; PCP Physician Assistant
DX: H10.11 Acute atopic conjunctivitis, right eye (principal); K21.9 Gastro-esophageal reflux disease without esophagitis; Z87.442 Personal history of urinary calculi; G47.30 Sleep apnea, unspecified
CPT/HCPCS: 99283; A9270

== ENCOUNTER 2021-10-29 12:53 | Outpatient (CLI) | payer OTHER, SELFPAY ==
[2021-10-29 15:54] LABS: NT Pro B Type Natriuretic Pept 99 pg/mL (5-100)
--- NOTE | 2021-10-30 07:00 | WPDPFTINT ---
PFT Procedure Performed PFT Procedure Performed Spirometry with Pre/Post Bronchodilator Plethysmography (Lung Vol) Diffusing Cap (DLCO) Flow Vol Loop PFT Interpretation This is a pulmonary function test with pre and post-bronchodilator spirometry, plethysmography and diffusing capacity. The test was performed and results interpreted in accordance with the 2019 and 2005 ATS/ERS Task Force guidelines respectively using the Global Lung Function Initiative-2012 reference equations. Patient demonstrated good effort and cooperation. Reproducibility criteria were met. The quality of the pre bronchodilator spirometry maneuver was Grade C and post bronchodilator spirometry maneuver was Grade C. of note the patient was short of breath throughout the testing with persistent cough. Findings: Spirometry: There is decreased maximal expiratory airflow at all lung volumes with a concave expiratory flow tracing. The contour the inspiratory flow tracing is normal. The pre bronchodilator FVC is 3.71 L, 105% predicted. The pre bronchodilator FEV1 is 2.45 L, 83% predicted. The pre bronchodilator FEV1: FVC ratio 66%. The post bronchodilator FVC is 3.31 L, representing an 11% decrease. The post bronchodilator FEV1 is 2.35 L, representing a 4% decrease. The post bronchodilator FEV1: FVC ratio 71%. Plethysmography: The total lung capacity is 6.43 L, 137% predicted. The functional residual capacity is 2.98 L, 140% predicted. The residual volume is 2.15 L, 184% predicted. Diffusing capacity: The diffusing capacity unadjusted for hemoglobin and carboxyhemoglobin is 21.9, 75% predicted. The diffusing capacity adjusted for alveolar volume is 7.13, 128% predicted. Impression: There is a mild obstructive abnormality with a normal FEV1 and without significant improvement after inhaling a single dose of albuterol. The increase in residual volume is consistent with air trapping from an obstructive abnormality. Hyperinflation is present as demonstrated by the increase in total lung capacity and is consistent with an obstructive abnormality. The diffusing capacity unadjusted for hemoglobin and carboxyhemoglobin is normal and is increased when adjusted for alveolar volume. There are no prior studies for comparison
[2021-11-02 07:27] LABS: Immunoglobulin G, Serum 922 mg/dL (600-1640); Immunoglobulin G1 501 mg/dL (382-929); Immunoglobulin G2 285 mg/dL (241-700); Immunoglobulin G3 31 mg/dL (22-178); Immunoglobulin G4 58.3 mg/dL (4.0-86.0)
[2021-11-03 15:33] LABS: Alpha-1-Antitrypsin, QN 155 mg/dL (83-199)
[2021-11-07 00:56] LABS: Immunoglobulin E 126 kU/L (<=114)
== END 2021-10-29 12:54 | disposition home or self-care (01) ==
LOC: ANHPFT 13:02
PROVIDERS: PCP Physician Assistant; Visit Provider Nurse Practitioner
DX: J45.909 Unspecified asthma, uncomplicated (principal); R05.3 Chronic cough; R06.09 Other forms of dyspnea; R94.2 Abnormal results of pulmonary function studies
CPT/HCPCS: 36415; 82103; 82104; 82784; 82785; 82787; 83880; 86003; 94060; 94726; 94729

== ENCOUNTER 2021-11-03 15:41 | Outpatient (CLI) | payer OTHER, SELFPAY ==
[2021-11-06 12:16] LABS: NIL 0.02 IU/mL; Quantiferon TB Plus, 1T NEGATIVE (NEGATIVE)
== END 2021-11-03 15:42 | disposition home or self-care (01) ==
LOC: ANHLAB 15:42
PROVIDERS: PCP Physician Assistant; Visit Provider Nurse Practitioner
DX: R05.3 Chronic cough (principal); R06.09 Other forms of dyspnea
CPT/HCPCS: 36415; 86480; 87070; 87205

== ENCOUNTER 2021-11-12 12:55 | Outpatient (CLI) | payer OTHER, SELFPAY ==
[2021-11-12 13:47] LABS: Absolute Eosinophil Count 1.2 K/mm3 (0.0-0.3)
== END 2021-11-12 12:56 | disposition home or self-care (01) ==
LOC: ANHLAB 12:58
PROVIDERS: PCP Physician Assistant; Visit Provider Nurse Practitioner
DX: R06.09 Other forms of dyspnea (principal)
CPT/HCPCS: 36415; 85048

== ENCOUNTER 2021-12-08 12:26 | Outpatient (CLI) | payer OTHER, SELFPAY ==
--- NOTE | 2021-12-08 14:43 | PCRCNOTE ---
UNABLE TO PERFORM METHACHOLINE AT THIS TIME. PT BEST FEV1 AFTER 8 ATTEMPTS IS 59% PREDICTED. THIS IS A RELATIVE CONTRAINDICATION. FERNY WAS NOTIFIED AND INSTRUCTED IF UNABLE TO PERFORM 60% OR BETTER FEV1, DO NOT PROCEED.
== END 2021-12-08 12:27 | disposition home or self-care (01) ==
PROVIDERS: PCP Physician Assistant; Visit Provider Nurse Practitioner
DX: J45.909 Unspecified asthma, uncomplicated (principal)
CPT/HCPCS: 99199; J7674

== ENCOUNTER 2021-12-10 13:39 | Emergency (ER) | payer OTHER, SELFPAY ==
[2021-12-10] VITALS (23 sets, daily range): BP systolic 141–161; BP diastolic 89–105; PULSE 77–99; RESP 9–26; TEMP 36.4; O2SAT 97–98
--- NOTE | ~2021-12-10 | XR_ITS ---
EXAMINATION: XR chest 2V DATE: 12/10/2021 14:46 INDICATION: Shortness of breath. TECHNIQUE: Frontal and lateral views of the chest were obtained. COMPARISON: Chest 2 views 09/21/2021 FINDINGS: There is no pneumonia, pleural effusion, or pneumothorax. The heart size is normal. IMPRESSION: 1. No acute cardiopulmonary disease. Reviewed, dictated and finalized at location A.
--- NOTE | 2021-12-10 13:56 | ECG_ITS ---
Measurements Intervals [place] Rate: 84 P: 12 MN: 143 QRS: 6 QRSD: 86 T: 49 QT: 356 QTc: 421 Interpretive Statements SINUS RHYTHM WITH MARKED SINUS ARRHYTHMIA CONSIDER INFERIOR INFARCT, AGE INDETERMINATE ABNORMAL ECG COMPARED TO ECG 09/21/2021 02:28:31 SINUS ARRHYTHMIA NOW PRESENT Electronically Signed On 12-10-2021 14:39:07 CDT by Eric Barbosa D.O.
--- NOTE | 2021-12-10 14:06 | ED.ASTHMA ---
HPI - Asthma General Chief Complaint: Asthma Stated Complaint: sob, dizzy Time Seen by Provider: 12/10/21 14:05 Source: patient Limitations: no limitations History of Present Illness HPI Narrative: 36 years old white male developed shortness of breath while working, similar to his previous history of asthma exacerbation, patient received rescue inhaler, got better, back to work then started having numbness tingling of the lips and hands with blurry vision. Currently patient feeling much better. Patient denies any anxiety or stress. Also denied any chest pain, back pain, headache or focal neurodeficit. Patient is on citalopram Patient report coughing since August 2021 secondary to pneumonia. History of allergy and asthma Related Data Home Medications Medication Instructions Recorded Confirmed albuterol sulfate 90 mcg/actuation inhalation 12/20/20 aerosol inhaler aripiprazole 2 mg tablet 2 mg 12/20/20 citalopram 20 mg tablet 20 mg 12/20/20 tadalafil 20 mg tablet 27.5 mg PO DAILY 12/20/20 Allergies Allergy/AdvReac Type Severity Reaction Status Date / Time [place] And Derivatives Allergy Severe ORAL Verified 10/21/21 06:40 BLISTERS onion Allergy Mild Diarrhea Verified 10/21/21 06:40 influenza virus vaccine Allergy Unknown Unknown Verified 12/08/21 12:49 trivalent pineapple Allergy Blister Verified 10/21/21 06:42 diphenhydramine AdvReac Intermediate AGGRESSION Verified 10/21/21 06:40 Review of Systems Review of Systems: All systems reviewed & are unremarkable except as noted in HPI and below PMFSH Past Medical History Medical History (Updated 12/10/21 @ 17:06 by Valente Camarillo MD) Back injury Chronic neck pain Chronic pain of left lower extremity GERD (gastroesophageal reflux disease) Heat stroke Inguinal hernia Bilateral Kidney stone Migraines Sleep apnea with use of continuous positive airway pressure (CPAP) Surgical History Surgical History H/O inguinal hernia repair Bilateral History of appendectomy History of cystoscopy History of extraction of renal calculus S/P ureteral stent placement Family History Family History Father Hypertension Other Diabetes mellitus Social History Social History Smoking status: Former smoker Alcohol intake: current Gender identity (if verbalized by the patient): Male Exam Narrative: General appearance: Well-developed, well-nourished, morbidly obese, intermittent coughing Skin: Normal color Head: Normocephalic, nontraumatic Eyes: Clear conjunctiva ENT: Oropharynx normal, ears normal, nose normal Neck: Supple, nontender Chest and respiratory: Airway patent, no respiratory distress, no accessory muscle use few scattered coarse wheezing Heart: Regular rate/rhythm Abdomen: Soft, nontender, no organomegaly, quiet bowel sounds Vascular: Normal peripheral pulses, normal capillary refill. Musculoskeletal: Normal range of motion, nontender back Neurologic: Alert and oriented ?3, ENGINEERING MECHANIC is normal as tested, no gross motor deficit Course Course Emergency Course: Patient presents with asthma exacerbation and anxiety-like symptoms. Work-up did not show any significant abnormality. Physical examination showed coarse wheezing bilaterally, currently patient is on albuterol and Flonase inhaler. Patient received 1 mg of Ativan orally on arrival to the emergency room with good response, currently patient feeling much better and ready to go home. Vital Signs Vital signs: Vital Signs Temperature 36.4 C 12/10/21 13:59
[2021-12-10 14:08] LABS: Basophils Percent Auto 0.3 % (0.2-1.2); Eosinophils Absolute Auto 1.5 K/mm3 (0-0.3); Hematocrit 41.8 % (42.0-52.0); Hemoglobin 14.8 g/dL (14.0-18.0); Immature Granulocyte Absolute 0.04 K/mm3 (0.00-0.031); Immature Granulocyte Percent A 0.3 % (0-0.5); Lymphocytes Absolute Auto 2.19 K/mm3 (0.9-3.2); Lymphocytes Percent Auto 17.9 % (18.3-44.2); Mean Corpuscular HGB Conc 35.4 g/dl (32-36); Mean Corpuscular Hemoglobin 27.8 pg (26-34); Mean Corpuscular Volume 78.4 fl (80-100); Monocytes Percent Auto 8.4 % (2.6-8.5); Neutrophils Absolute Auto 7.5 K/mm3 (1.3-6.7); Neutrophils Percent Auto 61.1 % (45.5-73.1); Platelet Count Result 197 k/mm3 (150-375); Red Blood Count 5.33 M/mm3 (4.6-6.20); Red Cell Distribution Width 13.6 % (11.5-14.5); White Blood Count 12.2 K/mm3 (4.5-10.0)
[2021-12-10 14:20] LABS: Alanine Aminotransferase 41 U/L (6-50); Albumin Level 4.1 g/dL (3.5-5.1); Alkaline Phosphatase 83 U/L (38-126); Anion Gap 11 mmol/L (8-16); Aspartate Amino Transferase 32 U/L (17-59); Blood Urea Nitrogen 11 mg/dL (9-20); Calcium 8.7 mg/dL (8.4-10.2); Carbon Dioxide 23 mmol/L (22-30); Chloride 106 mmol/L (98-107); Estimated CRCL calculation 176 ml/min; Estimated Glomerular Filt Rate > 60; Glucose 102 mg/dL (65-110); Potassium 3.5 mmol/L (3.4-5.0); Sodium 140 mmol/L (137-145)
[2021-12-10 14:38] LABS: Alveolar/Arterial O2 Gradient 20.1 mmHg; Base Excess ABG 1.2 mEq/l (+/-2.0); Fractional Inspired Oxygen 21 %; Oxygen Content ABG 20.8 %vol (16.0-22.0); Oxygen Saturation ABG 96.8 % (95.0-100.0); Oxyhemoglobin 95.2 % THb (90.0-100.0); PCO2 ABG 37.4 mmHg (35.0-45.0); PO2 ABG 84.8 mmHg (80.0-100.0); PO2 FiO2 Ratio Arterial Blood 4.04 %; Total Hemoglobin 15.5 g/dL (12.0-18.0); pH ABG 7.443 (7.350-7.450)
[2021-12-10 14:39] LABS: Modified Allen's Test Pass; Site Drawn LEFT RADIAL
[2021-12-10] MEDS: LORazepam (*CRX) 0.5 MG TABLET 1 MG PO (14:51)
== END 2021-12-10 17:43 | disposition home or self-care (01) ==
PROVIDERS: Emergency Provider Emergency Medicine; PCP Physician Assistant
DX: J45.901 Unspecified asthma with (acute) exacerbation (principal); F41.9 Anxiety disorder, unspecified; K21.9 Gastro-esophageal reflux disease without esophagitis; G47.30 Sleep apnea, unspecified; Z87.01 Personal history of pneumonia (recurrent); Z96.0 Presence of urogenital implants; Z87.442 Personal history of urinary calculi; Z87.891 Personal history of nicotine dependence; R94.31 Abnormal electrocardiogram [ECG] [EKG]
CPT/HCPCS: 36415; 36600; 71046; 80053; 82805; 85025; 93005; 99284; A9270

== ENCOUNTER → 2022-01-06 13:55 | Outpatient (CLI) | payer OTHER, SELFPAY ==
--- NOTE | ~2022-01-06 | CT_ITS ---
EXAMINATION:CT diagnostic chest wo con DATE: 01/06/2022 14:12 INDICATION: Solitary pulmonary nodule. TECHNIQUE: Computed tomography (CT) of the chest was performed without intravenous contrast. Automate d exposure control and iterative reconstruction technique were employed. The dose-length product (DLP ) was 378.28 mGy-cm. COMPARISON: Chest CT 07/02/2019 FINDINGS: There is an 10 mm nodule in left upper lobe, stable from 07/02/2019. No pleural effusion. The heart size is normal. No pericardial effusion. There are changes of cholecystectomy. There is mild t horacic spondylosis. IMPRESSION: 1. 10 mm pulmonary nodule, stable from 07/02/2019, likely benign. Reviewed, dictated and finalized at location A.
== END ==
PROVIDERS: PCP Physician Assistant; Visit Provider Physician Assistant
DX: R91.1 Solitary pulmonary nodule (principal); M47.814 Spondylosis without myelopathy or radiculopathy, thoracic region
CPT/HCPCS: 71250

== ENCOUNTER → 2022-04-09 14:18 | Outpatient (CLI) | payer OTHER, SELFPAY ==
--- NOTE | ~2022-04-09 | MR_ITS ---
EXAMINATION: MR lumbar spine wo con DATE: 04/09/2022 15:33 INDICATION: Pain of the lumbar spine with low back pain after stretching one month prior TECHNIQUE: Magnetic resonance imaging (MRI) of the lumbar spine was performed without intravenous con trast. Sequences included sagittal T2-weighted FSE, sagittal T2-weighted FS FSE, sagittal T1-weighted FSE, and axial T2-weighted FSE. COMPARISON: 10/27/2017 FINDINGS: 7 degrees lumbar levocurvature. Sagittal alignment is normal. Vertebral body heights are normal. Nor mal marrow signal. Moderate disc height loss and annular fissure at T11-T12. Disc desiccation with mi nimal disc height loss at L4-L5. Additional disc desiccation with moderate disc height loss and addit ional annular fissure at L5-S1. The conus medullaris terminates at 2. There is normal signal in the c audal spinal cord. Mild subcutaneous edema posterior to the spinous processes of L2 and L3. Paraverte bral soft tissues are otherwise unremarkable. The following disc levels are specifically discussed: T11-T12: Annular fissure and right paracentral disc extrusion which measures 1.5 cm medial collateral extending into the right neural foramen and extending a few millimeter hernia caudally. This results in moderate central canal stenosis and intensity right ventral surface of the cord. There is moderat e bilateral facet osteoarthritis. There is mild left and moderate right neural foraminal stenosis. T12-L1: The disc does not extend beyond the endplate margin. There is moderate left and severe right facet joint osteoarthritis. There is no neural foraminal stenosis. There is no central canal stenosis . L1-L2: The disc does not extend beyond the endplate margin. There is mild bilateral facet joint osteo arthritis. There is no neural foraminal stenosis. There is no central canal stenosis. L2-L3: Disc is minimally bulging. There is mild bilateral facet joint osteoarthritis. There is mild b ilateral neural foraminal stenosis. There is mild central canal stenosis. L3-L4: Disc is minimally bulging. There is mild bilateral facet joint osteoarthritis. There is mild b ilateral neural foraminal stenosis. There is minimal central canal stenosis. L4-L5: Disc is mildly bulging with superimposed annular fissure and left foraminal zone disc protrusi on. There is moderate left and moderate to severe right facet joint osteoarthritis. There is altered left and mild to moderate right neural foraminal stenosis. There is mild central canal stenosis. L5-S1: Disc is bulging with superimposed annular fissure and small left foraminal zone disc extrusion with disc material extending 2-3 mm cephalad and caudal to the level of the endplates. There is mild right and mild to moderate left facet joint osteoarthritis. There is mild left and mild right neural foraminal stenosis. There is no central canal stenosis. IMPRESSION: 1. Mild lumbar levocurvature with moderate spondylosis at T11-T12 and L5-S1 with minimal to mild inte rvening spondylosis. Reviewed, dictated and finalized at location A. ROL INTEGRATION ENGINEER IMPRESSION: 1. Mild lumbar levocurvature with moderate spondylosis at T11-T12 and L5-S1 wit h minimal to mild intervening spondylosis.
== END ==
PROVIDERS: PCP Physician Assistant
DX: M47.896 Other spondylosis, lumbar region (principal)
CPT/HCPCS: 72148

== ENCOUNTER 2022-06-11 08:08 | Outpatient (CLI) | payer OTHER, SELFPAY ==
[2022-06-11 08:43] LABS: Appearance Urine Clear (Clear); Bacteria Urine None Seen /hpf; Bilirubin Urine Negative (Negative); Blood Urine Negative (Negative); Color Urine Yellow (Yellow); Glucose Urine UA Negative (Negative); Ketones Urine Negative (Negative); Leukocyte Esterase Ur 1+ LEU/UL (Negative); Nitrate Urine Negative (Negative); Non Pathogenic Casts 0-2; Protein Urine Negative (Negative); RBC Urine 0-2 /hpf (0-2); Specific Grav Ur 1.019 (1.001-1.035); Squamous Epithelial Cell Urine Occasional /hpf (Few); pH Urine 6.5 (5.0-9.0)
[2022-06-11 08:50] LABS: Alanine Aminotransferase 33 U/L (6-50); Albumin Level 4.4 g/dL (3.5-5.1); Alkaline Phosphatase 86 U/L (38-126); Anion Gap 5 mmol/L (8-16); Aspartate Amino Transferase 32 U/L (17-59); Bilirubin,Total 1.1 mg/dL (0.2-1.3); Blood Urea Nitrogen 12 mg/dL (9-20); Calcium 8.2 mg/dL (8.4-10.2); Carbon Dioxide 29 mmol/L (22-30); Chloride 105 mmol/L (98-107); Cholesterol 186 mg/dL (0-200); Estimated Glomerular Filt Rate > 60; Glucose 99 mg/dL (65-110); HDL Direct 37 mg/dL; Sodium 139 mmol/L (137-145); Triglycerides 110 mg/dL (<150)
[2022-06-11 08:51] LABS: Basophils Percent Auto 0.4 % (0.2-1.2); Eosinophils Absolute Auto 0.7 K/mm3 (0-0.3); Eosinophils Percent Auto 8.6 % (0-4.4); Hematocrit 45.1 % (42.0-52.0); Hemoglobin 15.3 g/dL (14.0-18.0); Immature Granulocyte Absolute 0.03 K/mm3 (0.00-0.031); Immature Granulocyte Percent A 0.4 % (0-0.5); Lymphocytes Absolute Auto 1.75 K/mm3 (0.9-3.2); Lymphocytes Percent Auto 21.5 % (18.3-44.2); Mean Corpuscular HGB Conc 33.9 g/dl (32-36); Mean Corpuscular Hemoglobin 27.4 pg (26-34); Mean Corpuscular Volume 80.8 fl (80-100); Mean Platelet Volume 11.7 fl (7.4-10.4); Monocytes Absolute Auto 0.9 K/mm3 (0.1-0.6); Monocytes Percent Auto 10.8 % (2.6-8.5); Neutrophils Absolute Auto 4.8 K/mm3 (1.3-6.7); Neutrophils Percent Auto 58.3 % (45.5-73.1); Platelet Count Result 203 k/mm3 (150-375); Red Blood Count 5.58 M/mm3 (4.6-6.20); Red Cell Distribution Width 13.4 % (11.5-14.5); White Blood Count 8.1 K/mm3 (4.5-10.0)
[2022-06-11 08:56] LABS: Add Urine Microscopic? YES
[2022-06-11 09:01] LABS: LDL Cholesterol Direct 116 mg/dL
[2022-06-11 09:36] LABS: Hemoglobin A1C 4.8 % (<5.7)
== END 2022-06-11 08:09 | disposition home or self-care (01) ==
LOC: ANHLAB 08:10
PROVIDERS: PCP Physician Assistant; Visit Provider Physician Assistant
DX: Z13.220 Encounter for screening for lipoid disorders (principal); Z13.1 Encounter for screening for diabetes mellitus; Z79.899 Other long term (current) drug therapy
CPT/HCPCS: 36415; 80053; 80061; 81001; 83036; 84443; 85025; 87086

== ENCOUNTER 2024-04-03 09:36 | Outpatient (CLI) | payer OTHER, SELFPAY ==
--- NOTE | 2024-04-03 15:08 | P.PCNPFT_ITS ---
PFT Procedure Performed PFT Procedure Performed Plethysmography (Lung Vol) Diffusing Cap (DLCO) Flow Vol Loop Spirometry w/o Bronchodil PFT Interpretation This is a pulmonary function test with spirometry, plethysmography and diffusing capacity. The test was performed and results interpreted in accordance with the 2019 and 2005 ATS/ERS Task Force guidelines respectively using the Global Lung Function Initiative-2012 reference equations. Patient demonstrated good effort and cooperation. Reproducibility criteria were met. The quality of the spirometry maneuver was Grade A. Findings: Spirometry: The contour the inspiratory and expiratory flow tracing are normal. The FVC is 4.34 L, 85% predicted. The FEV1 is 3.56 L, 87% predicted. The FEV1: FVC ratio is 82%. Plethysmography: The total lung capacity is 5.68 L, 85% predicted. The functional residual capacity is 2.39 L, 72% predicted. The residual volume is 0.98 L, 56% predicted. Diffusing capacity: The diffusing capacity unadjusted for hemoglobin and carboxyhemoglobin is 26.4, 80% predicted. the diffusing capacity adjusted for a lveolar volume is 4.35, 88% predicted. In comparison to previous pulmonary function testing on 10/29/2021 the FVC has improved from 3.71 L to 4.34 L. The FEV1 has improved from 2.45 L to 3.56 L. The total lung capacity is unchanged from 6.43 L to 5.68 L. The functional residual capacity has decreased from 2.98 L to 2.39 L. The residual volume has decreased from 1.89 L to 0.98 L. The diffusing capacity unadjusted for hemoglobin and carboxyhemoglobin is increased from 21.9 to 26.4. The diffusing capacity adjusted for alveolar volume has decreased from 7.13 to 4.35. Impression: The spirometry is normal without evidence of an obstructive abnormality. the total lung capacity and functional residual capacity are normal with a decreased residual volume. This is an abnormal but nonspecific lung volume pattern. The diffusing capacity is normal. In comparison to previous pulmonary function testing on 10/29/2021 there has been a greater than anticipated time dependent increase in the FVC, FEV1 and diffusing capacity unadjusted for hemoglobin and carboxyhemoglobin. There has been a greater than anticipated time dependent decrease in the functional residual capacity, residual volume and diffusing capacity adjusted for alveolar volume with no significant change in the total lung capacity. Clinical correlation is recommended.
== END 2024-04-03 09:37 | disposition home or self-care (01) ==
LOC: ANHPFT 09:37
PROVIDERS: PCP Physician Assistant; Visit Provider Orthopaedic Surgery
DX: J45.998 Other asthma (principal)
CPT/HCPCS: 94375; 94726; 94729